=== PATIENT | male | born 1955 | race Caucasian/White ===

== ENCOUNTER → 2023-06-08 12:40 | Outpatient (REF) | payer MEDICARE, BC, SELFPAY ==
[2023-06-08 13:13] LABS: % Basophils 0.2 % (0-2); % Eosinophils 0.8 % (0-6); % Immature Granulocytes 0.6 % (0-0.5); % Lymphocytes 19.1 % (20.5-51.1); % Monocytes 8.6 % (1.7-9.3); % Neutrophils 70.7 % (42.2-75.2); Absolute Eosinophils 0.1 10^3/uL (0-0.7); Absolute Immature Granulocytes 0.1 10^3/uL (0-0.05); Absolute Lymphocytes 1.6 10^3/uL (1.2-3.4); Absolute Monocytes 0.7 10^3/uL (0.1-0.6); Absolute Neutrophils 5.8 10^3/uL (1.4-6.5); Hematocrit 46.4 % (39.0-52.0); Hemoglobin 16.2 g/dL (13.0-18.0); Mean Corp Hgb Conc. 34.9 g/dL (33.0-37.0); Mean Corpuscular Hgb 36.7 pg (27.0-31.0); Nucleated Red Blood Cells % 0 % (-); Red Blood Cell Count 4.42 10^6/uL (4.70-6.10); Red Cell Dist. Width 16.6 % (11.5-14.5); White Blood Cell Count 8.2 10^3/uL (4.8-10.8)
[2023-06-08 13:35] LABS: Blood Urea Nitrogen 32 mg/dl (9-20); Calcium 8.7 mg/dl (8.4-10.2); Carbon Dioxide 25 mmol/L (22-30); Chloride 106 mmol/L (98-107); Glucose 82 mg/dl (70-99); Sodium 136 mmol/L (135-145); eGFR > 60.00
[2023-06-08 13:47] LABS: NT-proBNP 752 pg/ml
== END ==
LOC: RAD 12:40
PROVIDERS: ATTENDING PHYSICIAN Internal Medicine Cardiovascular Disease; FAMILY PHYSICIAN Internal Medicine
DX: R60.0 Localized edema (principal); I87.2 Venous insufficiency (chronic) (peripheral); L03.116 Cellulitis of left lower limb; I10 Essential (primary) hypertension; E78.5 Hyperlipidemia, unspecified; D64.9 Anemia, unspecified; Z12.5 Encounter for screening for malignant neoplasm of prostate; Z00.01 Encounter for general adult medical examination with abnormal findings; I47.20 Ventricular tachycardia, unspecified; R06.09 Other forms of dyspnea
CPT/HCPCS: 36415; 80048; 83880; 85025; 93971

== ENCOUNTER 2023-06-15 14:34 | Inpatient (IN) | payer MEDICARE, BC, SELFPAY ==
[2023-06-15 15:17] VITALS: BP 103/79
--- NOTE | 2023-06-15 15:35 | CM ---
Chart reviewed. Patient is independent of ADLS, lives with his in a [address], 2 [facility], ambulates with a SPC. Patient currently with no discharge needs. CM to follow
[2023-06-15 15:46] VITALS: BMI 27.0
--- NOTE | 2023-06-15 16:21 | W.CARD.TIKOS ---
Initiate Tikosyn
-
I verify that the patient has not taken any verapamil (Isoptin/Calan), ketoconazole (Nizoral), cimetidine (Tagamet), trimethoprim (Trimpex), trimethoprim/sulfamethoxazole (Bactrim), megesterol (Megace), prochlorperazine (Compazine),
hydrochlorothiazide (HCTZ), dolutegravir (Tivicay) or any Class I or Class III anti-arrhythmic within the last three days
AND
I verify that the patient has not taken amiodarone within the last THREE months, or that the patient's amiodarone plasma concentration is <0.3 mcg/mL.
I have assessed the baseline QTc interval (using QT for heart rate less than 60 bpm) and deemed the patient is appropriate for Dofetilide therapy. I understand that Tikosyn is contraindicated if the QTc is >440msec (500msec in patients with
ventricular conduction abnormalities).
Baseline QTc (in msec): 414
Ordering Physician: Glenn Sen
--- NOTE | 2023-06-15 17:00 | W.PN.CD ---
Addendum entered and electronically signed by Jayme Lawler MD 06/15/23 17:52:
67 yo male with PMH of persistent A fib, VT s/p ICD admitted for dofetilide load. He offers no complaints today. Exam with irregular rhythm, no murmurs, trace LE edema. Cr 0.6 (on 06/08).
Start dofetilide 500 mcg bid. Monitor tele and EKG.
If remains in A fib, will do inpatient DCCV later in the week.
Original Note:
Today's Communication / Plan
-
Dofetilide loading per protocol
Impression / Plan
-
*SEE SCANNED H&P - THIS IS A SUMMARY*
Background: 67M with hypertension, paroxysmal (now persistent) atrial fibrillation/flutter, sustained slow ventricular tachycardia, restrictive lung disease, and vascular disease who presents for dofetilide loading.
Impression/Plan:
Persistent atrial fibrillation
-Rate controlled
-Oral Anticoagulation: Apixaban 5mg BID, he denies missed doses and abnormal bleeding
-[id number]: Score at least 4 (HF, HTN, Vascular disease, age 65-74)
-EKG shows acceptable QTc
-Dofetilide loading per protocol, this requires intensive monitoring
-DCCV if necessary 06/17/23
HFpEF, chronic
-Started on furosemide 40mg with improvement in his LE edema
-He is refusing cardiac diet during hospitalization
-Monitor daily weight
Ventricular tachycardia, continue beta ismael
ICD, stable in outpatient device clinic
Hypertension
CAD, luminal disease by cardiac catheterization
Subjective:
Feels well. No complaints.
Physical Exam
Vital Signs/Labs
Vital Signs
Temp Pulse Resp BP Pulse Ox
97.9 F 68 18 103/79 96
06/15/23 15:17 06/15/23 15:17 06/15/23 15:17 06/15/23 15:17 06/15/23 15:17
06/14/23 06/15/23 06/16/23
06:59 06:59 06:59
Actual Weight 95.4 kg
Physical Exam
Constitutional: No acute distress and Comfortable
EENT: Anicteric and Moist mucous membranes
Cardiovascular: Rhythm/rate is irregular and S1S2 is normal
Respiratory: Respiratory effort normal and Lungs clear to auscul.
GI: Soft, Distention absent, Flat, Non tender and Normal bowel sounds
Neuro/Psych: AO x 3
Other: Skin (warm and dry)
Data Reviewed
-
Date of Service: June 15, 2023
Medical Decision Making: Reviewed Test Results and Tests Ordered
Labs: Labs Reviewed by me
Old Records: Reviewed
[2023-06-15 17:22] VITALS: BMI 27.0
--- NOTE | 2023-06-15 17:31 | PTCARENOTE ---
1520 Received patient for direct admit for Tikosyn. Oriented to room and call hernandez. Nursing admission, EKG completed, IV placed. Dr. Lawler in to see patient. Due for 1st dose of Tikosyn at 8pm.
[2023-06-15] MEDS: CRESTOR 5 MG PO (18:26)
[2023-06-15] MEDS: ZESTRIL 5 MG PO (18:26)
[2023-06-15 19:51] VITALS: BP 99/79
[2023-06-15] MEDS: ELIQUIS 5 MG PO (19:53)
[2023-06-15] MEDS: TIKOSYN 500 MCG PO (19:53)
[2023-06-15] MEDS: VIBRAMYCIN 100 MG PO (19:54)
--- NOTE | 2023-06-15 19:58 | PTCARENOTE ---
Assumed care of patient at 1900, patient AAO, denies chest pain/SOB. VPaced on monitor, VSS, SPO2 98% on RA. Full assessment completed as documented, plan of care discussed with patient verbalizing understanding.
[2023-06-15 22:50] VITALS: BP 119/84
--- NOTE | 2023-06-15 23:25 | PTCARENOTE ---
Patient resting comfortably, Remains VPaced on monitor, VSS, no acute changes in assessment. EKG s/p 1st dose Tikosyn 558, de ionizer operator progressive assembler and fitter notified. Instructed to hold AM dose until cardiology sees patient in morning.
[2023-06-16 04:36] VITALS: BP 116/88
[2023-06-16 06:00] VITALS: BMI 27.0
[2023-06-16] MEDS: VIBRAMYCIN 100 MG PO ×2 (06:35→19:50)
--- NOTE | 2023-06-16 08:15 | W.PN.CD ---
Today's Communication / Plan
-
ICD to be checked a bit of undersensing of the flutter
Only 1 dose dofetilide yesterday so will wait until 06/18/2023 to cardiovert if needed
High risk, monitor on tele
Impression / Plan
-
Background: 67M with hypertension, paroxysmal (now persistent) atrial fibrillation/flutter, sustained slow ventricular tachycardia, restrictive lung disease, and vascular disease who presents for dofetilide loading.
Impression:
Persistent atrial fibrillation
- AFib has organized to a flutter (likely atypical but would need EPS to know for sure). GOOD SIGN
-Rate controlled
-Oral Anticoagulation: Apixaban 5mg BID, he denies missed doses and abnormal bleeding
-[id number]: Score at least 4 (HF, HTN, Vascular disease, age 65-74)
-EKG shows acceptable QTc. Now V paced with QTc under 550
-Dofetilide loading per protocol, this requires intensive monitoring
-DCCV if necessary 06/17/23
HFpEF, chronic
-Started on furosemide 40mg with improvement in his LE edema
-He is refusing cardiac diet during hospitalization
-Monitor daily weight
Ventricular tachycardia, continue beta ismael
ICD, stable in outpatient device clinic
Hypertension
CAD, luminal disease by cardiac catheterization
Lung disease. Has f/u with pulm planned
Subjective:
Feels well. No complaints.
Physical Exam
Vital Signs/Labs
Vital Signs
Temp Pulse Resp BP Pulse Ox
98.1 F 60 16 116/88 97
06/16/23 04:41 06/16/23 04:36 06/16/23 04:41 06/16/23 04:36 06/16/23 04:41
06/15/23 06/16/23 06/17/23
06:59 06:59 06:59
Actual Weight 95.4 kg
Physical Exam
Constitutional: No acute distress
EENT: Anicteric
Cardiovascular: Rhythm & rate is regular and Pedal edema present (trace to mild)
Respiratory: Respiratory effort normal, Lungs clear to auscul. (but with prolonged expirtatory phase (nonsmoker)) and Crackles Absent
GI: Soft, Distention absent and Flat
Neuro/Psych: AO x 3
Data Reviewed
-
Date of Service: June 16, 2023
[2023-06-16 08:23] VITALS: BP 110/78
[2023-06-16] MEDS: TIKOSYN 500 MCG PO ×2 (08:55→19:50)
[2023-06-16] MEDS: ELIQUIS 5 MG PO ×2 (08:55→19:50)
[2023-06-16] MEDS: LASIX 40 MG PO (08:55)
[2023-06-16] MEDS: TOPROL XL 100 MG PO (08:55)
--- NOTE | 2023-06-16 09:58 | W.PN.UPDATE ---
Update Note
Progress Note Update
-
-
Device interrogation showed perfect sensing of flutter (300 ms) of 4 mV
Aflutter terminated with BURST Atrial pacing at 240 ms via his device
QTc fine on new 12 lead ekg in atrial paced rhythm with reno-sparks QRS (narrow)
-
-
--- NOTE | 2023-06-16 11:10 | CM ---
Chart reviewed. Patient is independent of ADLS, lives with his in a [address], 2 [facility], ambulates with a SPC. I called patient's [facility] and they do have Dofetilide 500mcq in stock. I will confirm the day of discharge. The cost is $50.20 for
a 30 day supply. Patient is agreeable to the cost. CM to follow
[2023-06-16 13:18] VITALS: BP 119/76
[2023-06-16 15:08] VITALS: BP 110/84
[2023-06-16] MEDS: ZESTRIL 5 MG PO (18:18)
[2023-06-16] MEDS: CRESTOR 5 MG PO (18:18)
--- NOTE | 2023-06-16 19:25 | PTCARENOTE ---
Ambulating in room and in hallway independently. Denies complaints.
[2023-06-16 19:39] VITALS: BP 109/74
[2023-06-16 22:52] VITALS: BP 116/72
--- NOTE | 2023-06-16 23:13 | PTCARENOTE ---
Pt received start of shift HR SR w/ AV pacing and BBB 60s-70s. BP stable. Pt in bed watching TV, states no questions about purpose of Tikosyn. 3rd dose of Tikosyn administered, QTc 516. Pt informed to notify RN if any CP, SOB, or
lightheadedness/dizziness. call hernandez within reach.
[2023-06-17 02:55] VITALS: BP 116/92
[2023-06-17 07:51] VITALS: BP 120/89
[2023-06-17] MEDS: ELIQUIS 5 MG PO ×2 (07:53→20:01)
[2023-06-17] MEDS: LASIX 40 MG PO (07:53)
[2023-06-17] MEDS: VIBRAMYCIN 100 MG PO ×2 (07:53→20:00)
[2023-06-17] MEDS: TOPROL XL 100 MG PO (07:55)
--- NOTE | 2023-06-17 09:37 | W.PN.CD ---
Today's Communication / Plan
-
- QTc - long
- Reduce Tikosyn to 250 mcg
- EKG tonight and in AM.
- Possible discharge in AM after Tikosyn dose.
Impression / Plan
-
Background: 67M with hypertension, paroxysmal (now persistent) atrial fibrillation/flutter, sustained slow ventricular tachycardia, restrictive lung disease, and vascular disease who presents for dofetilide loading.
Impression:
Persistent atrial fibrillation
-AFib has organized to a flutter s/p atrial burst pacing and now in sinus.
-Rate controlled
-Oral Anticoagulation: Apixaban 5mg BID, he denies missed doses and abnormal bleeding
-[id number]: Score at least 4 (HF, HTN, Vascular disease, age 65-74)
-EKG shows lengthening QTc with PVCs on Tikosyn 500 mcg. Normal Cr and CrCL.
-Will reduce Tikosyn dose to 250 mcg q12h
-Dofetilide loading per protocol, this requires intensive monitoring
-now in sinus
HFpEF, chronic
-Started on furosemide 40mg with improvement in his LE edema
-He is refusing cardiac diet during hospitalization
-Monitor daily weight
Ventricular tachycardia, continue beta ismael
ICD, stable in outpatient device clinic
Hypertension
CAD, luminal disease by cardiac catheterization
Lung disease. Has f/u with pulm planned
Subjective:
Feels well. No complaints.
Physical Exam
Vital Signs/Labs
Vital Signs
Temp Pulse Resp BP Pulse Ox
97.9 F 93 24 120/89 95
06/17/23 07:48 06/17/23 07:51 06/17/23 07:48 06/17/23 07:51 06/17/23 07:48
06/16/23 06/17/23 06/18/23
06:59 06:59 06:59
Actual Weight 95.4 kg
Physical Exam
Constitutional: No acute distress and Comfortable
EENT: Anicteric and Moist mucous membranes
Cardiovascular: Rhythm & rate is regular, Pedal edema is absent, JVD pressure is normal and Systolic murmur absent
Respiratory: Respiratory effort normal, Lungs clear to auscul., Wheeze Absent and Crackles Absent
GI: Soft, Distention absent, Non tender and Normal bowel sounds
Neuro/Psych: Alert, Oriented, AO x 3 and Motor deficits absent
Other: Cath Site and Cardiac Device Site
Data Reviewed
-
Date of Service: June 17, 2023
Medical Decision Making: Reviewed Test Results, Tests Ordered, Test Interpretation and Review of Case with other Provider
EKG: Tracing Personally Visualized and interpreted
Echo: Report Reviewed by me
X-Ray/CT/US/MRI/NUC/PET: Image Personally Visualized and interpreted
Labs: Labs Reviewed by me
Old Records: Reviewed
--- NOTE | 2023-06-17 10:27 | CM ---
Chart reviewed. Patient is independent of ADLS, lives with his [place] [address], 2 [facility], ambulates with a SPC. Dofetilide decreased to 250mcq. CM to call and confirm availability on day of discharge. CM to follow
--- NOTE | 2023-06-17 10:28 | PTCARENOTE ---
Dr. Loco notified of last night's QTC result. Tikosyn dose reduced to 250mg.
[2023-06-17] MEDS: TIKOSYN 250 MCG PO ×2 (11:26→22:32)
[2023-06-17] MEDS: TIKOSYN PO (11:28)
[2023-06-17 11:46] VITALS: BP 111/69
[2023-06-17 15:26] VITALS: BP 98/70
[2023-06-17] MEDS: ZESTRIL 10 MG PO (17:34)
[2023-06-17] MEDS: CRESTOR 5 MG PO (17:34)
[2023-06-17 19:58] VITALS: BP 115/67
[2023-06-17] MEDS: FLUSH (NSS) 1 FLUSH IV (20:01)
[2023-06-17 22:31] VITALS: BP 107/71
--- NOTE | 2023-06-18 01:13 | PTCARENOTE ---
Received patient at change of shift this PM. AAOx3. VSS. He is A-Paced on the monitor, but occasionally AV-Paced or NSR. HR in the 60s-90s. INT patent. He denies chest pain or discomfort. Plan of care discussed. He is receptive to teaching and
motivated. We discussed his medications and he has no further questions about them at this time. He denies pain and appears comfortable in bed. Will continue to monitor.
[2023-06-18 03:51] VITALS: BP 113/72
[2023-06-18 05:13] VITALS: BMI 27.2
[2023-06-18 07:28] VITALS: BP 126/86
[2023-06-18] MEDS: ELIQUIS 5 MG PO (08:32)
[2023-06-18] MEDS: TOPROL XL 100 MG PO (08:32)
[2023-06-18] MEDS: VIBRAMYCIN 100 MG PO (08:32)
[2023-06-18] MEDS: LASIX 40 MG PO (08:32)
--- NOTE | 2023-06-18 10:23 | W.PN.CD ---
Today's Communication / Plan
-
- Hope AFib will be paroxysmal and low burden on Dofetilide 250 BID and if not may need to accept afib as permanent or refer for ablation�
- Home today
Impression / Plan
-
Background: 67M with hypertension, paroxysmal (now persistent) atrial fibrillation/flutter, sustained slow ventricular tachycardia, restrictive lung disease, and vascular disease who presents for dofetilide loading.
Impression:
Persistent atrial fibrillation
-AFib has organized after 1-2 doses of dofetilide to a flutter => s/p atrial burst pacing to sinus => dofetilide lowered to 250 BID and just went into AFib
- Hope AFib will be paroxysmal and low burden on Dofetilide 250 BID and if not may need to accept afib as permanent or refer for ablation
-Rate controlled
-Oral Anticoagulation: Apixaban 5mg BID, he denies missed doses and abnormal bleeding
-[id number]: Score at least 4 (HF, HTN, Vascular disease, age 65-74)
-EKG shows lengthening QTc with PVCs on Tikosyn 500 mcg. Normal Cr and CrCL.
-Will reduce Tikosyn dose to 250 mcg q12h
-Dofetilide loading per protocol, this requires intensive monitoring
-now in sinus
HFpEF, chronic
-Started on furosemide 40mg with improvement in his LE edema
-He is refusing cardiac diet during hospitalization
-Monitor daily weight
Ventricular tachycardia, continue beta ismael
ICD, stable in outpatient device clinic
Hypertension
CAD, luminal disease by cardiac catheterization
Lung disease. Has f/u with pulm planned
Subjective:
Feels well. No complaints.
Physical Exam
Vital Signs/Labs
Vital Signs
Temp Pulse Resp BP Pulse Ox
98.4 F 69 18 126/80 96
06/18/23 07:27 06/18/23 09:00 06/18/23 07:27 06/18/23 08:32 06/18/23 07:27
06/17/23 06/18/23 06/19/23
06:59 06:59 06:59
Actual Weight 96.2 kg
Physical Exam
Constitutional: No acute distress
EENT: Anicteric
Cardiovascular: Rhythm/rate is irregular
Respiratory: Respiratory effort normal and Lungs clear to auscul.
GI: Soft and Distention absent
Neuro/Psych: AO x 3
Data Reviewed
-
Date of Service: June 18, 2023
[2023-06-18] MEDS: TIKOSYN 250 MCG PO (10:38)
--- NOTE | 2023-06-18 10:57 | W.DS.TRANS ---
DC Summary - Staff Engineer
-
Discharge Instructions:
Sleep Apnea Risk Intermediate
Discharge Diagnosis/Procedures persistent Afib, Tikosyn loading
Diet 2 Gram Sodium
Activity As tolerated
Driving Restrictions As prior to admission
Bathing Restrictions None
Instructions:
Stand-Alone Forms:
Changes to Home Medications: Yes
Discharge Medications:
DC Medications w/original date entered in [facility]
apixaban 5 mg tablet (Eliquis) 5 mg PO BID #60 tabs 06/18/23
dofetilide 250 mcg capsule 250 mcg PO Q12H #60 caps 06/18/23
furosemide 40 mg tablet 40 mg PO DAILY hfpef #30 tabs 06/18/23
lisinopril 5 mg tablet 10 mg PO QPM htn #30 tabs 06/18/23
metoprolol succinate 100 mg tablet,extended release 24 hr 100 mg PO DAILY rate control of Afib #30 tabs 06/18/23
rosuvastatin 5 mg tablet 5 mg PO QPM High cholesterol #30 tabs 06/18/23
Home Medication Changes
Lasix increased to 40mg daily.
Tikosyn is new.
Lisinopril increased to 10mg daily.
Pending Results: No
--- NOTE | 2023-06-18 12:39 | PTCARENOTE ---
Pt discharged with 3 day supply of tikosyn. Pt awaiting transport. Will monitor.
== END 2023-06-18 12:55 | disposition home or self-care (01) | DRG 309 ==
LOC: IVU 14:34
PROVIDERS: ADMITTING PHYSICIAN Internal Medicine Cardiovascular Disease
DX: I48.19 Other persistent atrial fibrillation (principal); I50.32 Chronic diastolic (congestive) heart failure; Z79.01 Long term (current) use of anticoagulants; I47.20 Ventricular tachycardia, unspecified; I11.0 Hypertensive heart disease with heart failure
CPT/HCPCS: 93005

== ENCOUNTER 2023-06-21 18:32 | Inpatient (IN) | payer MEDICARE, BC, SELFPAY ==
[2023-06-21] VITALS (15 sets, daily range): BP systolic 81–111; BP diastolic 51–76; BMI 27.0; BMI 25.2
--- NOTE | 2023-06-21 11:26 | ED.GENMED ---
History of Present Illness
General
Chief Complaint: Musculo-Skeletal Complaint
Source: patient
Time Seen by Provider: 06/21/23 11:14
Travel History
Have you had any contact with someone who has COVID-19?: No
Do you have any symptoms of coronavirus? Fever > 100 degrees, chills, cough, shortness of breath, sore throat, loss of taste or smell, muscle aches, or headache?: No
History of Present Illness
History of Present Illness:
67 year old male presents with worsening swelling and redness and pain to left leg. He was thought to have cellulitis about 2 weeks ago and was started on Doxy psych she completed a 10-day course. He is not a diabetic. History of left total knee
arthroplasty and left ankle ORIF. IN 2020, he was found to have pseudomonas in the left ankle and had superintendent [employer] IV antibiotics for this. No chest pain or SOB. Not a diabetic. On elqius. US left leg done 2 weeks ago negative for DVT. No other
complaints at this time.
Past History
Past History
ED Past Medical History: Arrthythmia (afib), HTN and Hypercholesterolemia
ED Past Surgical History: Orthopedic (right hip replacement)
Social History
Tobacco: Non-smoker
Alcohol: Occasional
Drug: None
Personal:
Living: with family
Employment: Employed
Family History
Family History: Other (n/c)
Phy Exam
Physical Exam
Physical Exam:
General: Well-appearing male no acute respiratory distress
HEENT: Normocephalic atraumatic neck is supple heart: Regular rate and rhythm no murmurs
Lungs: CTA bilaterally
Abd: soft, nontender
Ext: erythema to left leg spreading from left ankle to mid thigh. This is tender to palpation.
MSK: Left knee, no significant effusion. Full extension and flexion beyond 90 degrees.
Skin:no open wounds.
Course
Orders/Labs/Results
Orders:
Orders
06/21/23 11:39
Acetaminophen [Tylenol] 650 mg PO NOW STA
06/21/23 11:45
Basic Metabolic Panel Urgent
Complete Blood Count/With Diff Urgent
Lactic Acid Q4H
Comment: CANCEL 2nd LACTIC ACID IF 1st LACTIC ACID IS LESS THAN 2
Blood Culture Q30M
MARGARET Source: Blood/Venous
Specimen Description:
06/21/23 14:14
Potassium Routine
Blood Culture Q30M
MARGARET Source: Blood/Venous
Specimen Description:
06/21/23 14:54
Piperacillin/Tazo 3.375 Gram [Zosyn] 3.375 gram in 50 ml IV NOW
Vancomycin 1 Gram/200 ml [Vancocin] 1 gram in 200 ml IV NOW
06/21/23 15:30
Lactic Acid Q4H
Comment: CANCEL 2nd LACTIC ACID IF 1st LACTIC ACID IS LESS THAN 2
Abnormal Lab Results
06/21/23
11:45
WBC 16.7 H 10^3/uL
(4.8-10.8)
RBC 4.08 L 10^6/uL
(4.70-6.10)
MCV 106.4 H fL
(80.0-94.0)
MCH 37.7 H pg
(27.0-31.0)
RDW 16.3 H %
(11.5-14.5)
MPV 10.5 H fL
(7.4-10.4)
Abs Immat Gran (auto) 0.1 H 10^3/uL
(0-0.05)
Absolute Neuts (auto) 14.1 H 10^3/uL
(1.4-6.5)
Absolute Lymphs (auto) 0.9 L 10^3/uL
(1.2-3.4)
Absolute Monos (auto) 1.5 H 10^3/uL
(0.1-0.6)
Immature Gran % 0.7 H %
(0-0.5)
Neutrophils % 84.4 H %
(42.2-75.2)
Lymphocytes % 5.6 L %
(20.5-51.1)
Sodium 134 L mmol/L
(135-145)
Chloride 111 H mmol/L
(98-107)
Carbon Dioxide 21 L mmol/L
(22-30)
BUN 33 H mg/dl
(9-20)
Glucose 117 H mg/dl
(70-99)
Lactic Acid 2.4 H mmol/L
(0.7-2.0)
Calcium 8.3 L mg/dl
(8.4-10.2)
06/21/23 11:45
06/21/23 14:14
Vital Signs
Initial and Last Documented VS:
Initial Vital Signs
Temp Pulse Resp BP Pulse Ox
100.8 F H 88 18 91/65 96
06/21/23 11:04 06/21/23 11:04 06/21/23 11:04 06/21/23 11:04 06/21/23 11:04
Last Documented Vital Signs
Temp Pulse Resp BP Pulse Ox
99.6 F 88 18 90/52 95
06/21/23 13:02 06/21/23 11:04 06/21/23 11:04 06/21/23 14:00 06/21/23 14:00
MDM/Problems Addressed
Differential Diagnosis Includes:
Left leg erythema. He is anticoagulated. Do not suspect DVT. Left knee with good range of motion and no significant effusion. Do not suspect septic arthritis. Suspect cellulitis. Labs and cultures pending. Temperature is 100.8 triage.
*Critical Care Note
Total Time (30-74mins, 75-104mins- exclusive of procedures): Not Applicable
Update Note
Update Note:
White blood cell count 16.7. Patient does have a fever here. Will start vancomycin and Zosyn. He has failed outpatient treatment for cellulitis. Admit to hospital
ED Attending Note
-
Portions of this chart may have been created with voice recognition software.� Occasional wrong word or��sound alike� substitutions may have occurred due to the inherent limitations of voice recognition software.
Discharge Plan
Departure
Patient Disposition: Admit
Date of Disposition: 06/21/23
Time of Disposition: 14:58
Admit to: Telemetry
Presentation/result/management discussed w/ accepting MD/DO: Hospitalist
Discharge Problem:
Cellulitis
Prescriptions:
No Action
furosemide 40 mg Tablet
40 mg PO DAILY Qty: 30 1RF
metoprolol succinate 100 mg Tablet Extended Release 24 Hr
100 mg PO DAILY Qty: 30 0RF
dofetilide 250 mcg Capsule
250 mcg PO Q12H Qty: 60 3RF
lisinopril 5 mg Tablet
10 mg PO QPM Qty: 30 0RF
Eliquis 5 mg Tablet
5 mg PO BID Qty: 60 0RF
rosuvastatin 5 mg Tablet
5 mg PO QPM Qty: 30 0RF
ascorbic acid (vitamin C) [Vitamin C] 500 mg Tablet
500 mg PO DAILY
Referrals:
Napoleon North MD [Family Provider] -
Interventions
Interventions:
*Risk Screen - Suicide Last Done: 06/21/23 11:04
*General Assessment Last Done: 06/21/23 11:04
*Neglect/Abuse Screening Last Done: 06/21/23 11:04
ED- Fall Risk Assessment Last Done: 06/21/23 11:27
*ED COVID-19 Vaccine History Last Done: 06/21/23 11:04
ED-Musculoskeletal Assessment Last Done: 06/21/23 11:27
[2023-06-21] MEDS: TYLENOL 650 MG PO (11:52)
[2023-06-21 11:59] LABS: % Basophils 0.2 % (0-2); % Eosinophils 0.1 % (0-6); % Immature Granulocytes 0.7 % (0-0.5); % Lymphocytes 5.6 % (20.5-51.1); % Neutrophils 84.4 % (42.2-75.2); Absolute Immature Granulocytes 0.1 10^3/uL (0-0.05); Absolute Lymphocytes 0.9 10^3/uL (1.2-3.4); Absolute Monocytes 1.5 10^3/uL (0.1-0.6); Absolute Neutrophils 14.1 10^3/uL (1.4-6.5); Hematocrit 43.4 % (39.0-52.0); Hemoglobin 15.4 g/dL (13.0-18.0); Mean Corp Hgb Conc. 35.5 g/dL (33.0-37.0); Mean Corpuscular Hgb 37.7 pg (27.0-31.0); Mean Corpuscular Volume 106.4 fL (80.0-94.0); Mean Platelet Volume 10.5 fL (7.4-10.4); Nucleated Red Blood Cells % 0 % (-); Platelet Count 137 10^3/uL (130-400); Red Blood Cell Count 4.08 10^6/uL (4.70-6.10); Red Cell Dist. Width 16.3 % (11.5-14.5); White Blood Cell Count 16.7 10^3/uL (4.8-10.8)
[2023-06-21 12:30] LABS: Lactic Acid 2.4 mmol/L (0.7-2.0)
[2023-06-21 12:33] LABS: Blood Urea Nitrogen 33 mg/dl (9-20); Calcium 8.3 mg/dl (8.4-10.2); Carbon Dioxide 21 mmol/L (22-30); Chloride 111 mmol/L (98-107); Estimated Creatinine Clearance 119 ml/min; Glucose 117 mg/dl (70-99); Sodium 134 mmol/L (135-145); eGFR > 60.00
[2023-06-21 14:44] LABS: Potassium 4.1 mmol/L (3.5-5.1)
[2023-06-21] MEDS: ZOSYN 50 IV ×2 (15:15→22:26)
[2023-06-21] MEDS: VANCOCIN 540 MG IV (15:55)
[2023-06-21 16:50] LABS: Lactic Acid 2.3 mmol/L (0.7-2.0)
--- NOTE | 2023-06-21 17:16 | HPS.HSE ---
Addendum entered and electronically signed by Deven Friedman MD 06/21/23 17:34:
67-year-old male with a past medical history of atrial fibrillation on Eliquis, left ankle surgery complicated by Pseudomonas infection, hypertension, hyperlipidemia, and heart failure presents with fever and worsening erythema/swelling despite a
full course of doxycycline for cellulitis.
Patient has a leukocytosis, with a fever. He is hypotensive.
Place in the IMU, check lower extremity Dopplers, give IV fluids, hold home blood pressure medications, midodrine as needed, IV Zosyn to cover for Pseudomonas.
If blood cultures are negative, can change to Ancef.
I have personally seen and examined the patient, and agree with the plan of care as documented by Lorraine Strange PA-C.
Advance care planning discussed, patient is a full code.
All other issues as outlined by the advanced care practitioner.
Total time spent to see the patient on the floor, examine the patient, review data and lab results, discuss treatment plan with patient, nursing staff around 75 minutes.
Original Note:
Family Physician
-
Family Physician: [facility]
Chief Complaint
-
Left Lower Ext Edema and Pain
History of Present Illness
Pt is a 67yo M w/ a PMH of HTN, HLD, HFpEF, persistent AFib, and Left Ankle ORIF w/ infection caused by Pseudomonas who is presenting to the ED c/o redness, swelling and pain in the right leg x 2 days. He states he was diagnosed with cellulitis on
Jun 08 and prescribed a 10 day course of doxycycline. He states that a Doppler ultrasound was performed at that time and was negative for blood clot. He states he presented to ED on 06/18/23 for a Tikosin load for AFib. He reports having taken
the first 8 days of the doxycycline, was given 2 days worth while here and then finished his additional 2 days that he had left at home. He states the infection looked improved but the swelling started the day after he returned home from the
hospital this most recent time. He reports increased pain in the left lower extremity and increased redness of the upper thigh. He admits to a fever and presented with a 100.8F temperature upon arrival to the ED.
Medical History
Past Medical History
Past Medical History: Reports Other
Additional Past Medical History:
Paroxysmal Atrial Fibrillation
Essential Hypertension
Hyperlipidemia
Iliac Artery Aneurysm s/p repair/stent
Past Surgical History: Reports Other
Additional Past Surgical History:
Right Distal Radius Fracture Repair
Right Rotator Cuff
Right Hip Replacement
Left Knee Replacement
Left Ankle ORIF
Lumbar MIKIE
Right Lithotripsy
Social History
Tobacco: Non-smoker
Family History
Family History: Not pertinent
Allergies / Home Medications
Allergies reflects when Allergies were last updated in [facility].
Home Medications with original date entered in [facility]
Allergy/Medication List:
Allergies
Allergy/AdvReac Type Severity Reaction Status Date / Time
amoxicillin [From Augmentin] Allergy Rash Verified 06/21/23 11:05
clavulanic acid Allergy Rash/tolerates Verified 06/21/23 11:05
[From Augmentin] cephalosporin
Home Medications
apixaban 5 mg tablet (Eliquis) 5 mg PO BID #60 tabs 06/18/23
dofetilide 250 mcg capsule 250 mcg PO Q12H #60 caps 06/18/23
furosemide 40 mg tablet 40 mg PO DAILY hfpef #30 tabs 06/18/23
lisinopril 5 mg tablet 10 mg PO QPM htn #30 tabs 06/18/23
metoprolol succinate 100 mg tablet,extended release 24 hr 100 mg PO DAILY rate control of Afib #30 tabs 06/18/23
rosuvastatin 5 mg tablet 5 mg PO QPM High cholesterol #30 tabs 06/18/23
ascorbic acid (vitamin C) 500 mg tablet (Vitamin C) 500 mg PO DAILY 06/21/23
Review of Systems
-
A 12 point ROS was completed and negative except as noted: Yes
Constitutional: Reports Fever; Denies Chills
Respiratory: Reports Cough (Chronic and Unchanged)
Cardiac: Denies Chest Pain or Palpitations
Skin: Reports See HPI
Physical Exam
Vital Signs
Vital Signs
Temp Pulse Resp BP Pulse Ox
99.6 F 88 18 84/61 95
06/21/23 13:02 06/21/23 11:04 06/21/23 11:04 06/21/23 16:00 06/21/23 16:15
Physical Exam
General: Comfortable and Conversant
HEENT: Anicteric and Moist mucous membranes
Respiratory: Clear and Non Labored Respirations
Cardiac: S1/S2 and Regular Rhythm
GI: Soft and Non Tender
Rectal: Deferred by Provider
Musculoskeletal: No Clubbing, No Cyanosis, Edema, Left Lower Extremity (+2) and Edema, Right Lower Extremity (+1)
Skin: Warm, Dry and Other (Chronic skin changes bilateral lower extremities; Left medial and lateral thigh with increased erythema and increased warmth to touch)
Neuro: Awake, Alert, Oriented and Nonfocal/grossly intact
Laboratory Results
-
06/21/23 11:45
06/21/23 14:14
Laboratory Results
Lactic Acid 2.3 mmol/L (0.7-2.0) H 06/21/23 16:30
Total Bilirubin Cancelled 06/21/23 11:45
AST Cancelled 06/21/23 11:45
ALT Cancelled 06/21/23 11:45
Alkaline Phosphatase Cancelled 06/21/23 11:45
Data Reviewed
-
Lab Data: Labs Reviewed by me
Old Records: Reviewed
Impression/Plan
-
Severe Sepsis secondary to Left Lower Ext Cellulitis
-Admit to IMU should patient require additional BP support after sepsis fluid bolus
-Add Midodrine prn
-Continue Zosyn
-Check peripheral vascular ultrasound
-Await blood culture
Chronic HFpEF
-Hold Lasix
-Monitor IS&Os and Daily Weight
Paroxysmal Atrial Fibrillation
-Continue Eliquis
-Continue Tikosyn for rhythm control
Essential Hypertension
-Hold Lisinopril and Metoprolol due to hypotension
Hyperlipidemia
-Continue rosuvastatin
Iliac Artery Aneurysm s/p repair/stent
DVT proph: Eliquis
Code Status: Full Code
[2023-06-21] MEDS: NSS 1000 IV ×2 (17:41→22:26)
[2023-06-21] MEDS: CRESTOR 5 MG PO (20:37)
[2023-06-21] MEDS: ELIQUIS 5 MG PO (20:37)
[2023-06-21] MEDS: TIKOSYN 250 MCG PO (20:37)
--- NOTE | 2023-06-21 20:49 | PTCARENOTE ---
Pt arrived to IMU via stretcher right at change of shift. Pt ambulated to bed with minimal assistance. Pt uses a cane from home but did request a RW while here in the hospital to reduce weight on his left leg. RW at bedside. AAOx3. 98% on RA.
AFib on the monitor with occasional v pacing. HR 70s. BP 111/75. Pt only c/o pain in left leg when touched. Redness and swelling from toes up to mid thigh on left leg. No open wounds. Pt resting in bed with call hernandez in reach.
[2023-06-21 21:02] LABS: Lactic Acid 2.3 mmol/L (0.7-2.0)
[2023-06-21] MEDS: NSS IV (22:46)
[2023-06-22] VITALS (22 sets, daily range): BP systolic 90–117; BP diastolic 67–98; BMI 26.3
[2023-06-22] MEDS: ZOSYN 50 IV ×4 (04:01→22:14)
[2023-06-22] MEDS: TYLENOL 650 MG PO ×2 (04:01→22:16)
[2023-06-22 04:37] LABS: Hematocrit 38.9 % (39.0-52.0); Hemoglobin 13.7 g/dL (13.0-18.0); Mean Corp Hgb Conc. 35.2 g/dL (33.0-37.0); Mean Corpuscular Hgb 37.3 pg (27.0-31.0); Mean Platelet Volume 10.8 fL (7.4-10.4); Platelet Count 133 10^3/uL (130-400); Red Blood Cell Count 3.67 10^6/uL (4.70-6.10); Red Cell Dist. Width 16.7 % (11.5-14.5); White Blood Cell Count 14.2 10^3/uL (4.8-10.8)
[2023-06-22 05:01] LABS: Blood Urea Nitrogen 33 mg/dl (9-20); Calcium 8.1 mg/dl (8.4-10.2); Carbon Dioxide 22 mmol/L (22-30); Chloride 110 mmol/L (98-107); Estimated Creatinine Clearance > 125 ml/min; Glucose 94 mg/dl (70-99); Potassium 4.2 mmol/L (3.5-5.1); Sodium 135 mmol/L (135-145); eGFR > 60.00
[2023-06-22] MEDS: ELIQUIS 5 MG PO ×2 (08:55→19:40)
[2023-06-22] MEDS: TIKOSYN 250 MCG PO ×2 (08:55→19:40)
--- NOTE | 2023-06-22 10:29 | W.PN.HOSP.TC ---
Today's Communication/Plan
-
see bold
Assessment / Plan
Assessment / Plan
HPI: 67-year-old male with a past medical history of atrial fibrillation on Eliquis, left ankle surgery complicated by Pseudomonas infection, hypertension, hyperlipidemia, and heart failure presents with fever and worsening erythema/swelling despite
a full course of doxycycline for cellulitis.
Severe Sepsis secondary to Left Lower Ext Cellulitis
-Patient has a history of left ankle Pseudomonas infection
-Repeat left lower extremity ultrasound negative for DVT
-Continue Zosyn, follow-up blood cultures, consult ID
Hypertension
-Hold Lasix, lisinopril
-Continue IV fluids, midodrine as needed for SBP less than 90
Paroxysmal Atrial Fibrillation
-Continue Eliquis, Tikosyn for rhythm control
-Resume metoprolol at decreased dose due to hypotension
Chronic HFpEF
-Hold Lasix
-Monitor IS&Os and Daily Weight
Essential Hypertension
-Hold Lisinopril and Metoprolol due to hypotension
Hyperlipidemia
-Continue rosuvastatin
Iliac Artery Aneurysm s/p repair/stent
DVT proph: Eliquis
Code Status: Full Code
Physical Exam
General: No acute distress
HEENT: Normocephalic, Atraumatic, EOMI, MMM
Respiratory: Clear to Auscultation bilaterally
Cardiac: Normal S1/S2, Regular Rate and Rhythm
GI: Soft, Nontender, Nondistended, Normal Bowel Sounds
Extremities: No Clubbing, Cyanosis
Left lower extremity with severe edema, tenderness, and erythema that is dark in on the shins, but bright red on his posterior thighs
Neuro: Nonfocal/Grossly Intact
Anticipated Discharge: > 48 hours
Subjective/Interval History
-
Date of Service: June 22, 2023
Patient continues to have severe left thigh pain. Fever resolved. Complains of constipation.
Objective Data
-
Labs:
Laboratory Results
06/22/23
04:16
WBC 14.2 H
Hgb 13.7
Hct 38.9 L
Plt Count 133
Sodium 135
Potassium 4.2
Chloride 110 H
Carbon Dioxide 22
BUN 33 H
Creatinine 0.6 L
Glucose 94
Calcium 8.1 L
Vital Signs:
Vital Signs
Temp Pulse Resp BP Pulse Ox
98.1 F 69 17 98/75 96
06/22/23 07:47 06/22/23 09:00 06/22/23 09:00 06/22/23 09:00 06/22/23 09:45
I&O
06/21/23 06/22/23 06/23/23
06:59 06:59 06:59
Intake Total 1430 / 1430
Output Total 750 / 750 200 / 200
Balance 680 / 680 -200 / -200
[2023-06-22] MEDS: TOPROL XL 25 MG PO (12:29)
--- NOTE | 2023-06-22 12:57 | CON.ID ---
Consultation
-
Date/Time Consultation Requested: 06/22/23 12:49
Date/Time Consultation Performed: 06/22/23 12:57
Requesting Provider: Dr Friedman
Performing Provider: Dr Vogel
Reason for Consultation: sepsis, cellulitis
Chief Complaint / Past History
Chief Complaint
cellulitis
History of Present Illness
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 04/04/21 IR aspiration
grew pansensitive pseudomonas treated with cefepime x6 weeks through 05/19/20. Hardwear was retained. He recalls later having a tagged WBC cell scan at [facility] without uptake in the L ankle. There was also a question of possible inflammatory
arthropathy (not confirmed at that time, treated empirically) and patient also received a 10 day steroid taper over the initial portion of this treatment course then switched to colchicine.
He is now presenting here for LEFT (ipsilateral) lower extremity cellulitis since Jun 08.
he was prescribed and took a 10 day course of doxycycline, he initially felt that the extremity was improving but after discharge noted increased swelling, pain redness and a fever to 100.8 at home and so he presented here.
Since arrival here tmax 100.8 orally, BP stable, wbc on arrival 16 now 14, hgb 13.7, plt 133, L shift is noted, cr 0.6, ca 8.1, venous us x2 no dvt, blood cultures x2, 04/04/21 body fluid from the L ankle joint - pseudomonas. Has received doses of
vancomycin and zosyn, currently on zosyn. ID is consulted for assistance with management.
Past History
Additional Past Medical History:
Paroxysmal Atrial Fibrillation
Essential Hypertension
Hyperlipidemia
Iliac Artery Aneurysm s/p repair/stent
Additional Past Surgical History:
Iliac Artery Aneurysm s/p repair/stent
Right Distal Radius Fracture Repair
Right Rotator Cuff
Right Hip Replacement
Left Knee Replacement
Left Ankle ORIF
Lumbar MIKIE
Right Lithotripsy
Allergy History:
amoxicillin [From Augmentin] Allergy (Verified 06/21/23 19:17)
Rash
clavulanic acid [From Augmentin] Allergy (Verified 06/21/23 19:17)
Rash
Medications Reviewed: Yes
Social History
Tobacco: Non-Smoker
Personal:
Living: With Family
Family History
Family History: Not Pertinent
Review of Systems
Review of Systems
General: Fever and Chills
All systems: All other systems were reviewed and were negative
Vital Signs
Temp Pulse Resp BP Pulse Ox
98.5 F 80 21 111/82 96
06/22/23 11:19 06/22/23 12:29 06/22/23 11:00 06/22/23 12:29 06/22/23 11:00
Physical Exam
Physical Exam
Constitutional: No Acute Distress
Cardiovascular: Regular Rate and S1/S2; Negative Murmur or Rub
Pulmonary: Clear and Symmetric; Negative Wheezes, Rales or Rhonchi
Gastrointestinal: Soft, Non Tender, Non Distended and Normal Bowel Sounds
Extremities: Other (left lower extremity red, swollen, hot tender with lymphangitic streaking)
Skin: Warm, Dry and Rash (erythema, warmth, swelling tenderness without discrete fluctuance of the LLE); Negative Jaundice
Lab / Diagnostic Study Results
06/22/23 04:16
06/22/23 04:16
Abs Immat Gran (auto) 0.1 10^3/uL (0-0.05) H 06/21/23 11:45
Absolute Neuts (auto) 14.1 10^3/uL (1.4-6.5) H 06/21/23 11:45
Absolute Lymphs (auto) 0.9 10^3/uL (1.2-3.4) L 06/21/23 11:45
Absolute Monos (auto) 1.5 10^3/uL (0.1-0.6) H 06/21/23 11:45
Absolute Basos (auto) 0.0 10^3/uL (0-0.2) 06/21/23 11:45
Immature Gran % 0.7 % (0-0.5) H 06/21/23 11:45
Neutrophils % 84.4 % (42.2-75.2) H 06/21/23 11:45
Lymphocytes % 5.6 % (20.5-51.1) L 06/21/23 11:45
Monocytes % 9.0 % (1.7-9.3) 06/21/23 11:45
Eosinophils % 0.1 % (0-6) 06/21/23 11:45
Basophils % 0.2 % (0-2) 06/21/23 11:45
Lactic Acid 1.0 mmol/L (0.7-2.0) 06/22/23 01:31
Microbiology Results
Micro:
06/21/23 11:45 Blood Culture - Preliminary
Blood/Venous No Growth in 24 hours- Final report to follow
06/21/23 14:14 Blood Culture - Pending
Blood/Venous
Assessment / Plan
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
- treated 2020 - 6 weeks of cefepime
- hardwear retained that that time
H/o allergy to augmentin
- 04/04/21 fluid from L ankle - pseudomonas - I fear we may be seeing a relapse of a chronic infection particularly as Pseudomonas is prone to forming biofilms with remote computer terminal operator infections on hardwear - workup as below
- blood cultures x2
- xray and MRI of the L ankle
- may need to reconsider removal of retained hardwear pending imaging - after imaging resulted then I will consult and discuss with orthopedics, or if infection only seems to be superficial then would treat as for nonpurulent cellulitis (strep)
- continue zosyn for now
- follow clinically
[2023-06-22] MEDS: NSS 1000 IV (15:23)
[2023-06-22] MEDS: COLACE PO ×2 (15:32→19:50)
[2023-06-22] MEDS: CRESTOR 5 MG PO (17:30)
--- NOTE | 2023-06-22 19:12 | PTCARENOTE ---
Patient sent to multiple test throughout the shift, requiring patient to get OOB with RW and walk to stretcher. Patient also walking into bathroom and out in the hallway with . Vitals all stable. Assessment, care and VS as charted.
--- NOTE | 2023-06-22 20:34 | PTCARENOTE ---
Received pt at change of shift. Redness/swelling/pain still present in left leg but does not appear to have worsened. Pt states it's only painful when touched or when moving the leg. IV site had difficulty flushing. Notified IV team who assessed
the site and inserted an additional IV line in left FA. Pt resting comfortably in bed with call hernandez in reach.
[2023-06-23] VITALS (13 sets, daily range): BP systolic 94–110; BP diastolic 62–89; BMI 27.8; BMI 27.7
[2023-06-23] MEDS: ZOSYN 50 IV ×2 (03:08→09:16)
[2023-06-23 06:18] LABS: Hematocrit 39.4 % (39.0-52.0); Hemoglobin 13.7 g/dL (13.0-18.0); Mean Corp Hgb Conc. 34.8 g/dL (33.0-37.0); Mean Corpuscular Hgb 36.3 pg (27.0-31.0); Mean Corpuscular Volume 104.5 fL (80.0-94.0); Mean Platelet Volume 10.7 fL (7.4-10.4); Platelet Count 150 10^3/uL (130-400); Red Blood Cell Count 3.77 10^6/uL (4.70-6.10); Red Cell Dist. Width 16.6 % (11.5-14.5); White Blood Cell Count 13.5 10^3/uL (4.8-10.8)
[2023-06-23] MEDS: NSS IV ×2 (06:39→06:40)
[2023-06-23 06:51] LABS: Blood Urea Nitrogen 27 mg/dl (9-20); Calcium 7.7 mg/dl (8.4-10.2); Carbon Dioxide 21 mmol/L (22-30); Chloride 114 mmol/L (98-107); Estimated Creatinine Clearance 119 ml/min; Glucose 80 mg/dl (70-99); Potassium 4.1 mmol/L (3.5-5.1); Sodium 135 mmol/L (135-145); Uric Acid 1.8 mg/dl (3.5-8.5); eGFR > 60.00
--- NOTE | 2023-06-23 08:24 | PN.CDI ---
CDI
- -
CDI:
Physician Documentation Request
Admit Date: 06/21/23 18:32
Dear Doctor Do,
H&P states 'PMH.. persistent afib,...'
Further down in same note 'paroxysmal atrial fibrillation '
EKG on 06/22 was confirmed with atrial fibrillation
Documented vital signs has atrial fib listed as rhythm.
In an attempt to clarify potential conflicting documentation, please clarify the type of atrial fibrillation:
Paroxysmal atrial fibrillation - terminates spontaneously or with intervention within 7 days of onset
Persistent atrial fibrillation - episodes of continuous AF that last more than 7 days and do not self-terminate
Other - please specify
Use of terms such as suspected, likely, concern for, or probable (associated with a specific diagnosis that is being evaluated, monitored, or treated as if it exists) are acceptable and can be coded in the inpatient setting, when documented at the
time of discharge.
Thank you,
Rachel Brush RN, BSN
CDI Specialist
tiger text
Please use your independent medical judgment in providing your response.
--- NOTE | 2023-06-23 08:56 | W.PN.HOSP.TC ---
Today's Communication/Plan
-
see bold
Assessment / Plan
Assessment / Plan
HPI: 67-year-old male with a past medical history of atrial fibrillation on Eliquis, left ankle surgery complicated by Pseudomonas infection, hypertension, hyperlipidemia, and heart failure presents with fever and worsening erythema/swelling despite
a full course of doxycycline for cellulitis.
Severe Sepsis secondary to Left Lower Ext Cellulitis
-Patient has a history of left ankle Pseudomonas infection
-Repeat left lower extremity ultrasound negative for DVT, MRI negative for osteomyelitis
-Appreciate ID input, continue Zosyn, blood cultures neg to date
-Trend fever and WBC
Hypertension
-Hold Lasix, lisinopril
-Cap IV fluids, midodrine as needed for SBP less than 90
Persistent Atrial Fibrillation (paroxysmal ruled out)
-Continue Eliquis, Tikosyn for rhythm control
-Resumed metoprolol at decreased dose due to hypotension
Chronic HFpEF
-Hold Lasix
-Monitor IS&Os and Daily Weight
Essential Hypertension
-Hold Lisinopril due to hypotension
Hyperlipidemia
-Continue rosuvastatin
Iliac Artery Aneurysm s/p repair/stent
DVT proph: Eliquis
Code Status: Full Code
Physical Exam
General: No acute distress
HEENT: Normocephalic, Atraumatic, EOMI, MMM
Respiratory: Clear to Auscultation bilaterally
Cardiac: Normal S1/S2, Regular Rate and Rhythm
GI: Soft, Nontender, Nondistended, Normal Bowel Sounds
Extremities: No Clubbing, Cyanosis
Left lower extremity with severe edema, tenderness, and erythema that is dark in on the shins, but bright red on his posterior thighs
Neuro: Nonfocal/Grossly Intact
Anticipated Discharge: 24 - 48 hours
Subjective/Interval History
-
Date of Service: June 23, 2023
Continues to have severe LLE/ left thigh pain. No fever.
Objective Data
-
Labs:
Laboratory Results
06/23/23
04:44
WBC 13.5 H
Hgb 13.7
Hct 39.4
Plt Count 150
Sodium 135
Potassium 4.1
Chloride 114 H
Carbon Dioxide 21 L
BUN 27 H
Creatinine 0.7
Glucose 80
Calcium 7.7 L
Vital Signs:
Vital Signs
Temp Pulse Resp BP Pulse Ox
98.4 F 62 18 94/65 94
06/23/23 03:13 06/23/23 06:00 06/23/23 06:00 06/23/23 06:00 06/23/23 04:00
I&O
06/22/23 06/23/23 06/24/23
06:59 06:59 06:59
Intake Total 1430 / 1430 50 / 50
Output Total 750 / 750 1125 / 1125
Balance 680 / 680 -1075 / -1075
[2023-06-23] MEDS: TIKOSYN 250 MCG PO ×2 (09:15→20:59)
[2023-06-23] MEDS: TOPROL XL 25 MG PO (09:15)
[2023-06-23] MEDS: COLACE PO ×2 (09:15→20:58)
[2023-06-23] MEDS: ELIQUIS 5 MG PO ×2 (09:16→20:58)
--- NOTE | 2023-06-23 09:46 | W.PN.ID1 ---
Date of Service
Date of Service: June 23, 2023
Today's Communication
continue zosyn for now
awaiting MRI
Assessment / Plan
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
- treated 2020 - 6 weeks of cefepime
- hardwear retained that that time
H/o allergy to augmentin
- 04/04/21 fluid from L ankle - pseudomonas - I fear we may be seeing a relapse of a chronic infection particularly as Pseudomonas is prone to forming biofilms with assisted infections on hardwear - workup as below
- blood cultures x2 - no growth to date
- ESR and CRP in the AM
- xray reviewed- I appreciate some possible subtle loosening, await MRI of the L ankle
- may need to reconsider removal of retained hardwear pending MRI - after imaging resulted then I will consult and discuss with orthopedics, or if infection only seems to be superficial then would treat as for nonpurulent cellulitis (strep)
- continue zosyn for now
- follow clinically
Chief Complaint
-: Other (osteomyelitis vs cellulitis)
Subjective / Review of Systems
no further fevers
bp stable
leukocytosis improving
cr stable
blood cultures no growth to date
my review of the ankle xray: possible subtle loosening of the superior screws - not definite
Vital Signs / Physical Exam
Vital Signs
Vital Signs
Temp Pulse Resp BP Pulse Ox
98.3 F 62 18 94/65 94
06/23/23 07:45 06/23/23 06:00 06/23/23 06:00 06/23/23 06:00 06/23/23 04:00
Physical Exam
Constitutional: No Acute Distress
Cardiovascular: Regular Rate and S1/S2; Negative Murmur or Rub
Pulmonary: Clear and Symmetric; Negative Wheezes or Rales
Gastrointestinal: Soft, Non Tender, Non Distended and Normal Bowel Sounds
Extremities: Other (elevated)
Skin: Warm and Dry; Negative Rash or Jaundice
Wound: Other
Objective Data
Lab Data
Lab Results
06/23/23 04:44
06/23/23 04:44
Estimated Creat Clear 119 ml/min 06/23/23 04:44
Lactic Acid 1.0 mmol/L (0.7-2.0) 06/22/23 01:31
Total Bilirubin Cancelled 06/21/23 11:45
AST Cancelled 06/21/23 11:45
ALT Cancelled 06/21/23 11:45
Alkaline Phosphatase Cancelled 06/21/23 11:45
Most recent labs reviewed.
Micro Results:
06/21/23 14:14 Blood Culture - Preliminary
Blood/Venous No Growth in 24 hours- Final report to follow
06/21/23 11:45 Blood Culture - Preliminary
Blood/Venous No Growth in 24 hours- Final report to follow
--- NOTE | 2023-06-23 13:31 | PTCARENOTE ---
Escorted to MRI and monitored tele/ VS while pt pacemaker in MRI Mode. Recorded on sheet to be scanned in chart by MRI staff.
[2023-06-23] MEDS: HYDROPHOR 1 APPLIC TOPICAL (14:00)
--- NOTE | 2023-06-23 14:47 | CM ---
Patient with Dx Severe Sepsis secondary to Left Lower Ext Cellulitis. Room air. Receiving IV Zosyn.
Met with patient who resides with his in a 2 story house with 2 DIONICIO.
The patient was Independent for ADLs/ambulation using his SPC when outside.
Patient says he is currently having difficulty ambulating due to pain in his left leg and has been using a RW while here.
DME - SPC, RW, w/c
VN - prior [facility]
SNF - prior [facility]
PCP - [facility]
Pharmacy - [facility]
Message to Dr Friedman requesting PT Eval.
Plan follow up after PT Eval.
[2023-06-23] MEDS: CRESTOR 5 MG PO (17:22)
[2023-06-23] MEDS: ZOSYN 100 IV ×2 (17:22→22:46)
--- NOTE | 2023-06-23 22:39 | PTCARENOTE ---
Received pt at change of shift. Pt grossly incontinent. Applied CC#25 as pt doesn't appear to always wake when needing to urinate. Waiting on stool sample. 3L NC applied to pt for desatting to low 80s while sleeping. Pt easily arousable.
Resting comfortably in bed with call hernandez in reach.
--- NOTE | 2023-06-23 22:41 | PTCARENOTE ---
Received pt at change of shift. IV team replaced IV site. Joselyn completed infusing at this time. Pt requested that he not be woken up prior to 06:00 to be weighed on the standing scale. He stated, 'the doctor asked that I not be weighed too
early'. Pt had a 21 lb weight increased since admission. Pt is not experiencing any respiratory changes or distress with this increased weight gain. Pt agreeable to bed scale and in the event there is a large change, he will then do a standing
scale. Pt resting comfortably in bed with call hernandez in reach.
[2023-06-24] VITALS (11 sets, daily range): BP systolic 106–121; BP diastolic 66–90; PULSE 75; O2SAT 98; BMI 26.4
[2023-06-24] MEDS: ZOSYN 100 IV (04:13)
[2023-06-24 04:39] LABS: Hematocrit 37.8 % (39.0-52.0); Hemoglobin 13.3 g/dL (13.0-18.0); Mean Corp Hgb Conc. 35.2 g/dL (33.0-37.0); Mean Corpuscular Hgb 36.3 pg (27.0-31.0); Mean Corpuscular Volume 103.3 fL (80.0-94.0); Mean Platelet Volume 10.3 fL (7.4-10.4); Platelet Count 143 10^3/uL (130-400); Red Blood Cell Count 3.66 10^6/uL (4.70-6.10); Red Cell Dist. Width 16.2 % (11.5-14.5); White Blood Cell Count 13.8 10^3/uL (4.8-10.8)
[2023-06-24 04:53] LABS: Blood Urea Nitrogen 21 mg/dl (9-20); Calcium 7.8 mg/dl (8.4-10.2); Carbon Dioxide 23 mmol/L (22-30); Chloride 112 mmol/L (98-107); Estimated Creatinine Clearance > 125 ml/min; Glucose 100 mg/dl (70-99); Potassium 3.9 mmol/L (3.5-5.1); Sodium 134 mmol/L (135-145); eGFR > 60.00
[2023-06-24 07:26] LABS: Erythrocyte Sed Rate 17 mm/hour (0-20)
[2023-06-24] MEDS: COLACE PO ×2 (08:26→20:30)
[2023-06-24] MEDS: TIKOSYN 250 MCG PO ×2 (08:26→20:30)
[2023-06-24] MEDS: TOPROL XL 25 MG PO (08:26)
[2023-06-24] MEDS: ELIQUIS 5 MG PO ×2 (08:26→20:30)
[2023-06-24] MEDS: HYDROPHOR 1 APPLIC TOPICAL (08:27)
--- NOTE | 2023-06-24 08:48 | W.PN.HOSP.TC ---
Today's Communication/Plan
-
see bold
Assessment / Plan
Assessment / Plan
HPI: 67-year-old male with a past medical history of atrial fibrillation on Eliquis, left ankle surgery complicated by Pseudomonas infection, hypertension, hyperlipidemia, and heart failure presents with fever and worsening erythema/swelling despite
a full course of doxycycline for cellulitis.
Severe Sepsis secondary to Left Lower Ext Cellulitis
-Patient has a history of left ankle Pseudomonas infection
-Repeat left lower extremity ultrasound negative for DVT, MRI negative for osteomyelitis
-Appreciate ID input, change Zosyn to Ancef, blood cultures neg to date
-Trend fever and WBC
Hypotension
-Hold lisinopril
-Improved s/p IVFs, BP 111/88
Persistent Atrial Fibrillation (paroxysmal ruled out)
-Continue Eliquis, Tikosyn for rhythm control
-Resumed metoprolol at decreased dose due to hypotension
Chronic HFpEF
-Resume Lasix /
-Monitor IS&Os and Daily Weight
Essential Hypertension
-Hold Lisinopril due to hypotension
Hyperlipidemia
-Continue rosuvastatin
Iliac Artery Aneurysm s/p repair/stent
DVT proph: Eliquis
Code Status: Full Code
Total time spent to see the patient on the floor, examine the patient, review data and lab results, discuss treatment plan with patient, nursing staff around 51 minutes.
Physical Exam
General: No acute distress
HEENT: Normocephalic, Atraumatic, EOMI, MMM
Respiratory: Clear to Auscultation bilaterally
Cardiac: Normal S1/S2, Regular Rate and Rhythm
GI: Soft, Nontender, Nondistended, Normal Bowel Sounds
Extremities: No Clubbing, Cyanosis
Left lower extremity with severe edema, tenderness, and erythema that is dark in on the shins, but bright red on his posterior thighs
Right lower extremity with edema
Neuro: Nonfocal/Grossly Intact
Anticipated Discharge: 24 - 48 hours
Subjective/Interval History
-
Date of Service: June 24, 2023
Left thigh pain improved. No fever.
Objective Data
-
Labs:
Laboratory Results
06/24/23
04:23
WBC 13.8 H
Hgb 13.3
Hct 37.8 L
Plt Count 143
Sodium 134 L
Potassium 3.9
Chloride 112 H
Carbon Dioxide 23
BUN 21 H
Creatinine 0.6 L
Glucose 100 H
Calcium 7.8 L
Vital Signs:
Vital Signs
Temp Pulse Resp BP Pulse Ox
98.4 F 74 22 111/90 94
06/24/23 07:23 06/24/23 06:00 06/24/23 06:00 06/24/23 06:00 06/23/23 04:00
I&O
06/23/23 06/24/23 06/25/23
06:59 06:59 06:59
Intake Total 50 / 50 1890 / 1890
Output Total 1125 / 1125 2099 / 2099
Balance -1075 / -1075 -210 / -210
[2023-06-24] MEDS: ANCEF 10 IV ×2 (09:43→17:24)
[2023-06-24] MEDS: FLUSH (NSS) 2 FLUSH IV (09:45)
[2023-06-24] MEDS: LASIX 40 MG PO (13:13)
--- NOTE | 2023-06-24 13:18 | W.PN.ID1 ---
Date of Service
Date of Service: June 24, 2023
Today's Communication
- switch to cefazolin
- continue compression/elevation
Assessment / Plan
Nonpurulent Cellulitis
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
- treated 2020 - 6 weeks of cefepime
- hardwear retained that that time
H/o allergy to augmentin
- MRI - cellulitis with low suspicion for osteomyelitis, no abscess; will treat as streptococcal cellulitis
- baseline CRP from today on file
- switch to cefazolin
- continue compression/elevation
- follow clinically
Chief Complaint
-: Other (osteomyelitis vs cellulitis)
Subjective / Review of Systems
afebrile
bp stable
mild leukocytosis
cr stable
MRI - no evidence of osteo or fluid collection
'I feel a lot better'
swelling and erythema much improved
Vital Signs / Physical Exam
Vital Signs
Vital Signs
Temp Pulse Resp BP Pulse Ox
98.9 F 80 22 106/67 98
06/24/23 11:27 06/24/23 10:05 06/24/23 10:05 06/24/23 10:05 06/24/23 08:25
Physical Exam
Constitutional: No Acute Distress
Cardiovascular: Regular Rate and S1/S2; Negative Murmur or Rub
Pulmonary: Clear and Symmetric; Negative Wheezes or Rales
Gastrointestinal: Soft, Non Tender, Non Distended and Normal Bowel Sounds
Skin: Warm, Dry and Rash (markedly improved erythema, there is subcuticular bleeding, much improved warmth and swelling); Negative Jaundice
Objective Data
Lab Data
Lab Results
06/24/23 04:23
06/24/23 04:23
ESR 17 mm/hour (0-20) 06/24/23 04:23
Estimated Creat Clear > 125 ml/min 06/24/23 04:23
Lactic Acid 1.0 mmol/L (0.7-2.0) 06/22/23 01:31
Total Bilirubin Cancelled 06/21/23 11:45
AST Cancelled 06/21/23 11:45
ALT Cancelled 06/21/23 11:45
Alkaline Phosphatase Cancelled 06/21/23 11:45
C-Reactive Protein 157.20 mg/L (0.0-10.00) H 06/24/23 04:23
Most recent labs reviewed.
Micro Results:
06/21/23 11:45 Blood Culture - Preliminary
Blood/Venous No Growth in 72 hours- Final report to follow
06/21/23 14:14 Blood Culture - Preliminary
Blood/Venous No Growth in 48 hours- Final report to follow
--- NOTE | 2023-06-24 17:21 | CM ---
Patient with Dx Severe Sepsis secondary to Left Lower Ext Cellulitis. Receiving IV Abx. PT recommends HH. Transferred from IMU to 3W today.
Spoke with patient about VN for PT and patient agrees. He is unsure which [facility] and wishes to discuss with his .
Plan follow up with patient re; VN.
[2023-06-24] MEDS: CRESTOR 5 MG PO (17:24)
[2023-06-25] MEDS: ANCEF 10 IV ×3 (02:13→17:26)
[2023-06-25 03:00] VITALS: BP 114/69
[2023-06-25 06:00] VITALS: BMI 27.5
[2023-06-25 07:00] VITALS: BP 125/81
[2023-06-25 07:01] LABS: Hematocrit 37.6 % (39.0-52.0); Hemoglobin 13.2 g/dL (13.0-18.0); Mean Corp Hgb Conc. 35.1 g/dL (33.0-37.0); Mean Corpuscular Hgb 37.1 pg (27.0-31.0); Mean Corpuscular Volume 105.6 fL (80.0-94.0); Mean Platelet Volume 9.9 fL (7.4-10.4); Platelet Count 146 10^3/uL (130-400); Red Blood Cell Count 3.56 10^6/uL (4.70-6.10); Red Cell Dist. Width 16.1 % (11.5-14.5); White Blood Cell Count 11.8 10^3/uL (4.8-10.8)
--- NOTE | 2023-06-25 07:23 | W.PN.HOSP.TC ---
Today's Communication/Plan
-
see bold
Assessment / Plan
Assessment / Plan
HPI: 67-year-old male with a past medical history of atrial fibrillation on Eliquis, left ankle surgery complicated by Pseudomonas infection, hypertension, hyperlipidemia, and heart failure presents with fever and worsening erythema/swelling despite
a full course of doxycycline for cellulitis.
Severe Sepsis secondary to Left Lower Ext Cellulitis
-Patient has a history of left ankle Pseudomonas infection
-Repeat left lower extremity ultrasound negative for DVT, MRI negative for osteomyelitis
-Appreciate ID input, s/p Zosyn, continue Ancef, blood cultures neg to date
-Trend fever and WBC
Hypotension
-Hold lisinopril
-Resolved s/p IVFs
Persistent Atrial Fibrillation (paroxysmal ruled out)
-Continue Eliquis, Tikosyn for rhythm control
-Resumed metoprolol at decreased dose due to hypotension
Chronic HFpEF
-Resumed Lasix /
-Monitor IS&Os and Daily Weight
Essential Hypertension
-Hold Lisinopril due to hypotension
Hyperlipidemia
-Continue rosuvastatin
Iliac Artery Aneurysm s/p repair/stent
DVT proph: Eliquis
Code Status: Full Code
Total time spent to see the patient on the floor, examine the patient, review data and lab results, discuss treatment plan with patient, nursing staff around 51 minutes.
Physical Exam
General: No acute distress
HEENT: Normocephalic, Atraumatic, EOMI, MMM
Respiratory: Clear to Auscultation bilaterally
Cardiac: Normal S1/S2, Regular Rate and Rhythm
GI: Soft, Nontender, Nondistended, Normal Bowel Sounds
Extremities: No Clubbing, Cyanosis
Left lower extremity with severe edema, tenderness, and erythema that is dark in on the shins, but bright red on his posterior thighs
Right lower extremity with edema
Neuro: Nonfocal/Grossly Intact
Anticipated Discharge: 24 - 48 hours
Subjective/Interval History
-
Date of Service: June 25, 2023
Left thigh pain continues to improve. No fever.
Objective Data
-
Labs:
Laboratory Results
06/25/23
06:48
WBC 11.8 H
Hgb 13.2
Hct 37.6 L
Plt Count 146
Sodium Pending
Potassium Pending
Chloride Pending
Carbon Dioxide Pending
BUN Pending
Creatinine Pending
Glucose Pending
Calcium Pending
Vital Signs:
Vital Signs
Temp Pulse Resp BP Pulse Ox
98.6 F 73 16 114/69 96
06/25/23 03:00 06/25/23 03:00 06/25/23 03:00 06/25/23 03:00 06/25/23 03:00
I&O
06/24/23 06/25/23 06/26/23
06:59 06:59 06:59
Intake Total 1890 / 1890 840 / 840
Output Total 2099 875 / 875
Balance -210 / -210 -35 / -35
[2023-06-25] MEDS: ELIQUIS 5 MG PO ×2 (07:45→20:55)
[2023-06-25] MEDS: LASIX 40 MG PO (07:45)
[2023-06-25] MEDS: TIKOSYN 250 MCG PO ×2 (07:46→20:55)
[2023-06-25] MEDS: TOPROL XL 25 MG PO (07:46)
[2023-06-25] MEDS: COLACE PO ×3 (07:46→21:04)
[2023-06-25] MEDS: HYDROPHOR 1 APPLIC TOPICAL (07:49)
[2023-06-25 08:34] LABS: Blood Urea Nitrogen 18 mg/dl (9-20); Calcium 7.6 mg/dl (8.4-10.2); Carbon Dioxide 24 mmol/L (22-30); Chloride 110 mmol/L (98-107); Estimated Creatinine Clearance > 125 ml/min; Glucose 85 mg/dl (70-99); Potassium 3.7 mmol/L (3.5-5.1); Sodium 133 mmol/L (135-145); eGFR > 60.00
[2023-06-25 11:00] VITALS: BP 110/62
[2023-06-25 15:00] VITALS: BP 128/88
[2023-06-25] MEDS: CRESTOR 5 MG PO (17:30)
--- NOTE | 2023-06-25 17:53 | W.PN.ID1 ---
Date of Service
Date of Service: June 25, 2023
Today's Communication
Continue abx.
Assessment / Plan
Nonpurulent Cellulitis
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
- treated 2020 - 6 weeks of cefepime
- hardwear retained that that time
H/o allergy to augmentin
- MRI - cellulitis with low suspicion for osteomyelitis, no abscess; treating as streptococcal cellulitis
- baseline CRP from today on file
- continue cefazolin
- continue compression/elevation
- follow clinically
Chief Complaint
-: Other (cellulitis)
Subjective / Review of Systems
Review of Systems: No Fever and No Chills
Vital Signs / Physical Exam
Vital Signs
Vital Signs
Temp Pulse Resp BP Pulse Ox
98.1 F 82 24 128/88 97
06/25/23 15:00 06/25/23 15:00 06/25/23 15:00 06/25/23 15:00 06/25/23 15:00
Physical Exam
Constitutional: No Acute Distress, Comfortable and Non-toxic
Eyes: Sclera Anicteric
Pulmonary: Non Labored
Extremities: Edema (LLE) and Erythema (LLE)
Neurological: Awake and Alert
Psychological: Calm
Objective Data
Lab Data
Lab Results
06/25/23 06:48
06/25/23 06:48
ESR 17 mm/hour (0-20) 06/24/23 04:23
Estimated Creat Clear > 125 ml/min 06/25/23 06:48
Lactic Acid 1.0 mmol/L (0.7-2.0) 06/22/23 01:31
Total Bilirubin Cancelled 06/21/23 11:45
AST Cancelled 06/21/23 11:45
ALT Cancelled 06/21/23 11:45
Alkaline Phosphatase Cancelled 06/21/23 11:45
C-Reactive Protein 157.20 mg/L (0.0-10.00) H 06/24/23 04:23
Most recent labs reviewed.
Micro Results:
06/21/23 14:14 Blood Culture - Preliminary
Blood/Venous No Growth in 4 days- Final report to follow
06/21/23 11:45 Blood Culture - Preliminary
Blood/Venous No Growth in 4 days- Final report to follow
[2023-06-25 19:00] VITALS: BP 109/70
[2023-06-25 23:00] VITALS: BP 109/67
[2023-06-26] MEDS: ANCEF 10 IV ×2 (02:01→10:19)
[2023-06-26] MEDS: FLUSH (NSS) 1 FLUSH IV (02:01)
[2023-06-26 03:20] VITALS: BP 108/78
[2023-06-26 06:00] VITALS: BMI 27.4
[2023-06-26 07:00] VITALS: BP 113/74
[2023-06-26 08:24] LABS: Hemoglobin 13.4 g/dL (13.0-18.0); Mean Corp Hgb Conc. 35.3 g/dL (33.0-37.0); Mean Corpuscular Hgb 37.6 pg (27.0-31.0); Mean Corpuscular Volume 106.7 fL (80.0-94.0); Mean Platelet Volume 10.3 fL (7.4-10.4); Platelet Count 164 10^3/uL (130-400); Red Blood Cell Count 3.56 10^6/uL (4.70-6.10); Red Cell Dist. Width 15.9 % (11.5-14.5); White Blood Cell Count 10.5 10^3/uL (4.8-10.8)
--- NOTE | 2023-06-26 08:24 | W.PN.HOSP.TC ---
Today's Communication/Plan
-
see bold
Assessment / Plan
Assessment / Plan
HPI: 67-year-old male with a past medical history of atrial fibrillation on Eliquis, left ankle surgery complicated by Pseudomonas infection, hypertension, hyperlipidemia, and heart failure presents with fever and worsening erythema/swelling despite
a full course of doxycycline for cellulitis.
Severe Sepsis secondary to Left Lower Ext Cellulitis
-Patient has a history of left ankle Pseudomonas infection
-Repeat left lower extremity ultrasound negative for DVT, MRI negative for osteomyelitis
-Appreciate ID input, s/p Zosyn, continue Ancef, blood cultures neg to date
-Trend fever and WBC
-Discharge when cleared by ID
Hypotension
-Hold lisinopril
-Resolved s/p IVFs
Persistent Atrial Fibrillation (paroxysmal ruled out)
-Continue Eliquis, Tikosyn for rhythm control
-Resumed metoprolol at decreased dose due to hypotension
Chronic HFpEF
-Resumed Lasix 2/15
-Monitor IS&Os and Daily Weight
Essential Hypertension
-Hold Lisinopril due to hypotension
Hyperlipidemia
-Continue rosuvastatin
Iliac Artery Aneurysm s/p repair/stent
DVT proph: Eliquis
Code Status: Full Code
Physical Exam
General: No acute distress
HEENT: Normocephalic, Atraumatic, EOMI, MMM
Respiratory: Clear to Auscultation bilaterally
Cardiac: Normal S1/S2, Regular Rate and Rhythm
GI: Soft, Nontender, Nondistended, Normal Bowel Sounds
Extremities: No Clubbing, Cyanosis
Left lower extremity with severe edema, tenderness, and erythema that is dark in on the shins, but bright red on his posterior thighs, much improved from prior
Right lower extremity with edema
Neuro: Nonfocal/Grossly Intact
Anticipated Discharge: 24 - 48 hours
Subjective/Interval History
-
Date of Service: June 26, 2023
Left thigh pain continues to improve. No fever.
Objective Data
-
Labs:
Laboratory Results
06/26/23
07:04
WBC Pending
Hgb Pending
Hct Pending
Plt Count Pending
Sodium Pending
Potassium Pending
Chloride Pending
Carbon Dioxide Pending
BUN Pending
Creatinine Pending
Glucose Pending
Calcium Pending
Vital Signs:
Vital Signs
Temp Pulse Resp BP Pulse Ox
98.3 F 72 18 113/74 94
06/26/23 07:00 06/26/23 07:00 06/26/23 07:00 06/26/23 07:00 06/26/23 07:00
I&O
06/25/23 06/26/23 06/27/23
06:59 06:59 06:59
Intake Total 840 / 840 1100 / 1100
Output Total 875 / 875 2175 / 2175
Balance -35 / -35 -1075 / -1075
[2023-06-26 08:34] LABS: Blood Urea Nitrogen 23 mg/dl (9-20); Calcium 7.9 mg/dl (8.4-10.2); Carbon Dioxide 26 mmol/L (22-30); Chloride 105 mmol/L (98-107); Estimated Creatinine Clearance > 125 ml/min; Glucose 84 mg/dl (70-99); Potassium 3.6 mmol/L (3.5-5.1); Sodium 136 mmol/L (135-145); eGFR > 60.00
[2023-06-26] MEDS: TIKOSYN 250 MCG PO (10:18)
[2023-06-26] MEDS: ELIQUIS 5 MG PO (10:19)
[2023-06-26] MEDS: TOPROL XL 25 MG PO ×2 (10:19→15:31)
[2023-06-26] MEDS: LASIX 80 MG PO (10:19)
[2023-06-26] MEDS: COLACE 100 MG PO (10:20)
[2023-06-26] MEDS: HYDROPHOR 1 APPLIC TOPICAL (10:20)
[2023-06-26 11:00] VITALS: BP 119/70
[2023-06-26 12:07] VITALS: BP 106/67; PULSE 75; O2SAT 98
--- NOTE | 2023-06-26 14:49 | W.DCSUMMARY ---
Discharge Summary
Discharge Data
Date of Admission: 06/21/23
Date of Discharge: 06/26/23
-
Pending Results: No
Hospital Course
Discharge diagnosis:
Sepsis
Left lower extremity cellulitis
Hypotension
Persistent atrial fibrillation on Eliquis
Chronic heart failure with preserved ejection fraction
History of benign essential hypertension
Hyperlipidemia
Consults: ID
Left ankle MRI:
Severe irregular joint space narrowing of the tibiotalar articulation with prominent subchondral diffuse signal abnormality and enhancement. Findings are felt to most likely represent degenerative changes of the tibiotalar articulation, with
significant progression since 2020.
Findings are felt to be of relatively low suspicion for osteomyelitis and septic arthritis.
Significant subcutaneous edema of the left lower leg, ankle, and foot. No evidence of a focal collection to suggest an abscess.
Hospital course:
67-year-old male with a past medical history of atrial fibrillation on Eliquis, left ankle surgery complicated by Pseudomonas infection, hypertension, hyperlipidemia, and heart failure presents with fever and worsening erythema/swelling despite a
full course of doxycycline for cellulitis.
Patient was treated with IV Zosyn to cover for Pseudomonas. He was seen in conjunction with ID. Left ankle MRI was negative for infection. Blood cultures were negative. He was transitioned from IV Zosyn to IV Ancef.
Patient also was hypotensive upon admission. His lisinopril, metoprolol, and furosemide were held. He received IV fluids and midodrine as needed.
After several days, his blood pressure improved. His Lasix was resumed. His metoprolol succinate was resumed at a decreased dose of 50 mg daily instead of 100 mg daily. He was counseled to hold his lisinopril upon discharge. He needs to
follow-up with his primary care doctor for repeat blood pressure check. They will give him further directions regarding his medications.
Patient was medically stable and cleared by ID for discharge on Keflex 500 mg 4 times daily for 7 more days. He needs to follow-up with his primary care doctor 1 week.
Disposition: Home with home care
Discharge planning: Required 36 minutes
Discharge Plan
-
Patient Disposition: Home with Home Care
Discharge Diagnosis/Procedures: Acute left lower extremity cellulitis, probable strep, hypotension, persistent atrial fibrillation
Condition: Good
Diet: Low Cholesterol and 2 Gram Sodium
Activity: As tolerated
Driving Restrictions: As prior to admission
Other Services: VN and PT
Activity Restrictions/Additional Instructions:
Your blood pressure in the hospital was low. We recommend you hold your lisinopril.
We have also decreased the dose of your metoprolol succinate from 100 mg daily to 50 mg daily.
Follow-up with your primary care doctor in 1 week for blood pressure check.
If your blood pressure becomes high, your primary care doctor can advise you to resume your medications as needed.
Follow-up with your campground attendant in the office as well.
Referrals:
Napoleon North MD [Family Provider] - in one week
Prescriptions:
New
metoprolol succinate 50 mg tablet extended release 24 hr
50 mg PO DAILY Qty: 30 0RF
cephalexin 500 mg capsule
500 mg PO QID 7 Days Qty: 28 0RF
Continued
furosemide 40 mg Tablet
40 mg PO DAILY Qty: 30 1RF
dofetilide 250 mcg Capsule
250 mcg PO Q12H Qty: 60 3RF
Eliquis 5 mg Tablet
5 mg PO BID Qty: 60 0RF
rosuvastatin 5 mg Tablet
5 mg PO QPM Qty: 30 0RF
ascorbic acid (vitamin C) [Vitamin C] 500 mg Tablet
500 mg PO DAILY
Held
lisinopril 5 mg Tablet
10 mg PO QPM Qty: 30 0RF
Hold Instructions: Resume on 07/12/23.
Discontinued
metoprolol succinate 100 mg Tablet Extended Release 24 Hr
100 mg PO DAILY Qty: 30 0RF
Discharge Orders:
Discharge Patient (As Directed); Ordered 06/26/23
Ordered By: Deven Friedman
Discharge Date and Time
Discharge Date/Time: 06/26/23 16:20
--- NOTE | 2023-06-26 14:52 | W.PN.ID1 ---
Date of Service
Date of Service: June 26, 2023
Today's Communication
Continue antibiotics. See below�
Assessment / Plan
Nonpurulent Cellulitis
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
- treated 2020 - 6 weeks of cefepime
- hardwear retained that that time
H/o allergy to augmentin
- MRI - cellulitis with low suspicion for osteomyelitis, no abscess; treating as streptococcal cellulitis
- baseline CRP from today on file
Overall clinically improved.
Transition to Keflex 500 mg p.o. 4 times daily for an additional 7 days.
Chief Complaint
-: Other (cellulitis)
Subjective / Review of Systems
Review of Systems: No Fever and No Chills
Vital Signs / Physical Exam
Vital Signs
Vital Signs
Temp Pulse Resp BP Pulse Ox
98.0 F 66 17 119/70 95
06/26/23 11:00 06/26/23 11:00 06/26/23 11:00 06/26/23 11:00 06/26/23 11:00
Physical Exam
Constitutional: No Acute Distress, Comfortable and Non-toxic
Eyes: Sclera Anicteric
Pulmonary: Non Labored
Extremities: Edema and Erythema
Neurological: Awake and Alert
Psychological: Calm
Objective Data
Lab Data
Lab Results
06/26/23 07:04
06/26/23 07:04
ESR 17 mm/hour (0-20) 06/24/23 04:23
Estimated Creat Clear > 125 ml/min 06/26/23 07:04
Lactic Acid 1.0 mmol/L (0.7-2.0) 06/22/23 01:31
Total Bilirubin Cancelled 06/21/23 11:45
AST Cancelled 06/21/23 11:45
ALT Cancelled 06/21/23 11:45
Alkaline Phosphatase Cancelled 06/21/23 11:45
C-Reactive Protein 157.20 mg/L (0.0-10.00) H 06/24/23 04:23
Most recent labs reviewed.
Micro Results:
06/21/23 14:14 Blood Culture - Final
Blood/Venous No Growth - Final Report
06/21/23 11:45 Blood Culture - Final
Blood/Venous No Growth - Final Report
Care Review
Plan reviewed with: Physician (Hospitalist)
[2023-06-26 15:00] VITALS: BP 114/68
--- NOTE | 2023-06-26 15:27 | CM ---
Addendum entered by Vivienne May RN 06/26/23 15:30:
Referral to [facility].
Original Note:
Patient with Dx Severe Sepsis secondary to Left Lower Ext Cellulitis. PT recommends HH.
Met with patient and ; both agree to d/c home today. IMM completed. Patient & would like [facility] for nurse check - unsure he will need PT at home and may ask PCP for script for outpatient PT in a few weeks.
Plan [facility] today [facility].
--- NOTE | 2023-06-26 16:12 | PTCARENOTE ---
Discussed discharge information with Pt and at bedside. Iv access and tele removed. Belongings from room taken. Staff wheeled Pt to exit. to drive Pt home.
== END 2023-06-26 16:20 | disposition home health service (06) | DRG 872 ==
LOC: 3 WEST ACU 18:32
PROVIDERS: Physician Assistant; Physician Assistant Medical; ADMITTING PHYSICIAN Family Medicine; CONSULT PHYSICIAN Student in an Organized Health Care Education/Training Program; EMERGENCY PHYSICIAN Emergency Medicine; FAMILY PHYSICIAN Internal Medicine
DX: A41.9 Sepsis, unspecified organism (principal); L03.116 Cellulitis of left lower limb; I50.32 Chronic diastolic (congestive) heart failure; I48.19 Other persistent atrial fibrillation; R65.20 Severe sepsis without septic shock; B96.5 Pseudomonas (aeruginosa) (mallei) (pseudomallei) as the cause of diseases classified elsewhere; E78.00 Pure hypercholesterolemia, unspecified; I95.9 Hypotension, unspecified; I72.3 Aneurysm of iliac artery; Z79.01 Long term (current) use of anticoagulants
CPT/HCPCS: 71046; 73610; 73723; 80048; 83605; 83735; 84132; 84550; 85025; 85027; 85652; 86140; 87040; 93005; 93970; 96361; 96365; 96375; 97116; 97162; 99284; A9575

== ENCOUNTER → 2023-06-30 13:12 | Outpatient (REF) | payer MEDICARE, BC, SELFPAY ==
[2023-06-30 13:45] LABS: ALT (SGPT) 27 U/L (0-50); AST (SGOT) 42 U/L (17-59); Albumin 2.6 g/dl (3.5-5.0); Alkaline Phosphatase 205 U/L (38-126); Blood Urea Nitrogen 26 mg/dl (9-20); Calcium 8.3 mg/dl (8.4-10.2); Carbon Dioxide 28 mmol/L (22-30); Chloride 108 mmol/L (98-107); Glucose 84 mg/dl (70-99); Potassium 3.8 mmol/L (3.5-5.1); Sodium 137 mmol/L (135-145); Total Bilirubin 2.1 mg/dl (0.2-1.3); Total Protein 5.8 g/dl (6.3-8.2); eGFR > 60.00
== END ==
LOC: CLAB 13:12
PROVIDERS: ATTENDING PHYSICIAN Thoracic Surgery (Cardiothoracic Vascular Surgery)
DX: I50.9 Heart failure, unspecified (principal)
CPT/HCPCS: 36415; 80053; 83735

== ENCOUNTER → 2023-07-15 15:32 | Outpatient (REF) | payer MEDICARE, BC, SELFPAY | LOC: RAD 15:32 | PROVIDERS: ATTENDING PHYSICIAN Nurse Practitioner Adult Health | DX: R09.89 Other specified symptoms and signs involving the circulatory and respiratory systems (principal) | CPT/HCPCS: 71046 ==

== ENCOUNTER 2023-10-12 10:34 | Day surgery (SDC) | payer MEDICARE, BC, SELFPAY ==
[2023-10-06 10:05] VITALS: BMI 25.2
[2023-10-12] VITALS (8 sets, daily range): BP systolic 98–112; BP diastolic 67–75; BMI 24.9
--- NOTE | 2023-10-12 14:14 | ITS.CL.PN ---
[facility] - Procedure Note
Procedure
Procedure Note:
Attempted Atrial fibrillation ablation:
Mr. Price is a very pleasant 68 yr old gentleman with persistent atrial fibrillation / flutter, failed Tikosyn, sustained slow ventricular tachycardia, restrictive lung disease, and vascular disease with aorto iliac stents who presents for AF/AFL
ablation.
Indications: Symptomatic persistent atrial fibrillation with heart failure
Date of the Procedure:
10/12/2023
Pre-Operative Diagnosis: Symptomatic persistent atrial fibrillation with heart failure
Post-Operative Diagnosis: Symptomatic persistent atrial fibrillation with acute on chronic heart failure
Procedure Performed: Venogram and attempted atrial fibrillation ablation.
Performing Physician:
Julissa Loco MD
Anesthesia:
See anesthesia records
Detailed Description of the Procedure:
Written informed consent was obtained from the patient after a full explanation of the risks and benefits of the procedure including the risks of sedation and anesthesia.
The patient was brought to the electrophysiology laboratory in stable condition in fasting state. Continuous electrocardiographic and hemodynamic monitoring was initiated.
The initial rhythm was atrial fibrillation.
The procedure site was meticulously prepared with surgical scrub and allowed to dry with no pooling. Sterile draping was applied to cover the procedure site. The image intensifier was draped with sterile bag and positioned over the patient.
After infusion of local anesthetic, vascular access was obtained under ultrasound guidance and sheaths were placed over guide wire as detailed below.
A total of 8 Sudanese, 7 Sudanese and 9 Sudanese sheaths were placed in the right femoral vein.
An ice catheter AcuNav was placed in the 9 Sudanese and femoral veins were imaged.� There was no significant access to IVC noted based on the ice imaging.� Decision was made to place guidewire but was not able to advance into the IVC.
Guidewires could not be advanced into the IVC with iliac vein occlusion/stenosis. A venogram was done that shows multiple collaterals with no flow from femoral vein to the IVC. Multiple attempts were done for guidewires to reach IVC which were not
successful. Eventually Glidewire/trumo was used but was not able to reach the IVC from the femoral vein.
Decision was made to access the left groin and 4 Sudanese sheath was placed into the left femoral vein. Venogram was done that again showed collaterals with no flow going from femoral vein to the IVC. There was iliac artery stents on both sides
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
Procedure End
The sheaths were removed and hemostasis achieved with manual compression.
Estimated Blood loss:
<5 cc
Specimens Removed:
None.
Implants / Devices:
None
Urine output:
None
Packs / Drains/ Tubes:
None
Instrument / Sponge Count Correct:
Yes
Complications of the Procedure:
None
Condition of Patient at Time of Transfer:
Stable.� Extubated
Summary:
Attempted atrial fibrillation ablation, limited intravascular ultrasound using AcuNav/ice, venogram of the lower extremity and attempted venoplasty without any success.
Recommendation
-Recover from the venous access with 4-hour bedrest. Discharge home today.
-Plan for BiV ICD upgrade with CS lead implantation versus left bundle district branch manager implantation
-Plan for AVJ ablation
== END 2023-10-12 17:00 | disposition home or self-care (01) ==
LOC: CATH 10:34
PROVIDERS: ATTENDING PHYSICIAN Internal Medicine Cardiovascular Disease; FAMILY PHYSICIAN Internal Medicine; OTHER PHYSICIAN Internal Medicine Cardiovascular Disease
DX: I48.19 Other persistent atrial fibrillation (principal); Z88.0 Allergy status to penicillin; I47.20 Ventricular tachycardia, unspecified; Z95.810 Presence of automatic (implantable) cardiac defibrillator; I50.32 Chronic diastolic (congestive) heart failure; Z79.01 Long term (current) use of anticoagulants; I10 Essential (primary) hypertension; J44.9 Chronic obstructive pulmonary disease, unspecified; I70.209 Unspecified atherosclerosis of native arteries of extremities, unspecified extremity; Z95.820 Peripheral vascular angioplasty status with implants and grafts; I48.92 Unspecified atrial flutter
CPT/HCPCS: 36005; C1769 ×2; C1733; C1894; C1730; C1892; C1759; 75820; 76937; 93656; Q9967

== ENCOUNTER → 2023-12-21 10:54 | Outpatient (REF) | payer MEDICARE, BC, SELFPAY | LOC: RAD 10:54 | PROVIDERS: ATTENDING PHYSICIAN Internal Medicine | DX: R07.81 Pleurodynia (principal) | CPT/HCPCS: 71101 ==

== ENCOUNTER → 2023-12-24 11:27 | Outpatient (REF) | payer MEDICARE, BC, SELFPAY | LOC: RAD 11:27 | PROVIDERS: ATTENDING PHYSICIAN Internal Medicine | DX: S22.42XA Multiple fractures of ribs, left side, initial encounter for closed fracture (principal) | CPT/HCPCS: 71046 ==

== ENCOUNTER → 2024-01-20 09:22 | Outpatient (REF) | payer MEDICARE, BC, SELFPAY | LOC: RCS 09:22 | PROVIDERS: ATTENDING PHYSICIAN Internal Medicine Cardiovascular Disease; FAMILY PHYSICIAN Internal Medicine | DX: I48.19 Other persistent atrial fibrillation (principal) | CPT/HCPCS: 93225; 93226 ==

== ENCOUNTER → 2024-02-03 10:25 | Outpatient (REF) | payer MEDICARE, BC, SELFPAY | LOC: HWRCS 10:25 | PROVIDERS: ATTENDING PHYSICIAN Internal Medicine Cardiovascular Disease; FAMILY PHYSICIAN Internal Medicine | DX: I48.19 Other persistent atrial fibrillation (principal); I77.810 Thoracic aortic ectasia | CPT/HCPCS: 93306 ==

== ENCOUNTER → 2024-02-24 10:47 | Outpatient (REF) | payer MEDICARE, BC, SELFPAY | LOC: RAD 10:47 | PROVIDERS: ATTENDING PHYSICIAN Internal Medicine Rheumatology; FAMILY PHYSICIAN Internal Medicine | DX: M81.0 Age-related osteoporosis without current pathological fracture (principal) | CPT/HCPCS: 77080; 77081 ==

== ENCOUNTER → 2024-03-14 14:03 | Outpatient (REF) | payer MEDICARE, BC, SELFPAY | LOC: MRI 14:03 | PROVIDERS: ATTENDING PHYSICIAN Specialist; FAMILY PHYSICIAN Internal Medicine | DX: M51.360 Other intervertebral disc degeneration, lumbar region with discogenic back pain only (principal) | CPT/HCPCS: 72148 ==

== ENCOUNTER 2025-02-08 10:30 | Emergency (ER) | payer MEDICARE, BC, SELFPAY ==
[2025-02-08] VITALS (7 sets, daily range): BP systolic 88–100; BP diastolic 52–78; PULSE 70–88
[2025-02-08] MEDS: NSS 500 IV (11:15)
--- NOTE | 2025-02-08 11:23 | ED.GENMED ---
History of Present Illness
General
Chief Complaint: Fall
Source: patient and family
Time Seen by Provider: 02/08/25 10:58
History of Present Illness
History of Present Illness:
69-year-old male with past medical history of atrial fibrillation, hypertension status post ICD placement presenting to the emergency department for evaluation after he had 2 episodes of near syncope upon awakening this morning stating the first
time he got up from bed and felt lightheaded so was able to sit back down, started to feel better so he ambulated to the bathroom but upon getting to the bathroom he did have an episode that caused him to fall to the ground injuring his left
buttock/hip. Patient was able to ambulate following the event but is having continued pain to this area. He is anticoagulated on Eliquis, denies any head injury, current headaches, LOC, vomiting, visual changes or any other extremity related pain.
Patient did note today that his blood pressure was lower than usual noting that ever since starting spironolactone around 1 year ago, his blood pressures have been usually in the low 100s systolically. Also of note, patient had dental work done
last week, currently still taking an oral antibiotic for this.
Past History
Past History
ED Past Medical History: Arrthythmia (afib), HTN and Hypercholesterolemia
ED Past Surgical History: Cardiac, Orthopedic (right hip replacement), Tonsilectomy and Other
Social History
Tobacco: Non-smoker
Alcohol: Occasional
Drug: None
Personal:
Living: with family
Employment: Employed
Family History
Family History: Other (n/c)
Review of Systems
Review of Systems
All Other Systems: ROS reviewed and negative except as documented in HPI and ROS
Phy Exam
Physical Exam
Physical Exam:
GENERAL: Alert , in no apparent distress
VITAL SIGNS: blood pressure at time of my exam is 88/62
EYE: clear conjunctiva b/l
HEAD: NCAT
ENT: o/p clr, mmm.
CARDIAC: Regular rate and rhythm, systolic murmur LSB .
LUNGS: Clear breath sounds bilaterally, no acute respiratory distress, no wheezes/rales/rhonchi
ABDOMEN: Soft, without focal tenderness, no r/g, no cvat
NEUROLOGICAL: Alert and oriented
SKIN: Warm and dry, skin intact.
MUSCULOSKELETAL: well perfused. LLE: no obvious signs of external trauma. Allows for FROM with minimal pain
PSYCH: Normal and appropriate interaction.
Scores
Heart Failure Risk
Heart Failure Risk Score: Not Applicable
Heart Score for Chest Pain Patients
STEMI patient?: Not applicable
Withdrawal Assessment of Alcohol
Withdrawal Assessment Completed?: Not applicable
Course
Orders/Labs/Results
Orders:
Orders
02/08/25 10:44
EKG [Electrocardiogram (*1)] Urgent
Reason for Study: Syncope
EKG- Treatment ONCE
02/08/25 11:13
CT Head W/o Iv Contrast Urgent
Comment:
Reason For Exam: fall, on eliquis
Orthostatic VS- Treatment ONCE
0.9% Sodium Chloride 500 ml [Nss] 500 ml IV BOLUS
CR Hip - LT w/wo Pel 2-3 Vw* Urgent
Comment:
Reason For Exam: fall, pain
Include a pelvis x-ray?: Yes
02/08/25 11:15
Complete Blood Count/With Diff Urgent
Comprehensive Metabolic Panel Urgent
02/08/25 12:13
Lactic Acid Q4H
Comment: CANCEL 2nd LACTIC ACID IF 1st LACTIC ACID IS LESS THAN 2
Blood Culture Q30M
MARGARET Source: Blood/Venous
Specimen Description:
02/08/25 12:16
Blood Culture Q30M
MARGARET Source: Blood/Venous
Specimen Description:
02/08/25 13:23
Urinalysis Reflex To Culture Urgent
Date Specimen was Collected: 10/02/25
Time Specimen was Collected: 13:21
Urine Microscopic Reflex Cult Urgent
Urine Culture Urgent
MARGARET Source: U
Specimen Description:
Date Specimen was Collected: 02/08/25
Time Specimen was Collected: 13:21
02/08/25 13:24
CT Pelvis W/o Iv Contrast Urgent
Comment:
Reason For Exam: fall, left hip pain, difficulty ambulating
02/08/25 13:25
Interrogate Pacemaker- Treatment ONCE
02/08/25 15:45
Lactic Acid Q4H
Comment: CANCEL 2nd LACTIC ACID IF 1st LACTIC ACID IS LESS THAN 2
Abnormal Lab Results
02/08/25 02/08/25 02/08/25
11:15 12:13 13:23
WBC 13.6 H 10^3/uL
(4.8-10.8)
RBC 4.13 L 10^6/uL
(4.70-6.10)
MCV 101.5 H fL
(80.0-94.0)
MCH 35.4 H pg
(27.0-31.0)
RDW 14.8 H %
(11.5-14.5)
Plt Count 129 L 10^3/uL
(130-400)
MPV 10.7 H fL
(7.4-10.4)
Abs Immat Gran (auto) 0.1 H 10^3/uL
(0-0.05)
Absolute Neuts (auto) 10.3 H 10^3/uL
(1.4-6.5)
Absolute Monos (auto) 1.2 H 10^3/uL
(0.1-0.6)
Neutrophils % 75.8 H %
(42.2-75.2)
Lymphocytes % 13.5 L %
(20.5-51.1)
Sodium 134 L mmol/L
(135-145)
Chloride 112 H mmol/L
(98-107)
Carbon Dioxide 18 L mmol/L
(22-30)
BUN 29 H mg/dl
(9-20)
Lactic Acid 2.1 H mmol/L
(0.7-2.0)
Total Bilirubin 3.1 H mg/dl
(0.2-1.3)
Total Protein 6.1 L g/dl
(6.3-8.2)
Albumin 3.2 L g/dl
(3.5-5.0)
Urine Ketones 1+ A
(Negative)
Ur Occult Blood Reflex 4+ A
(Negative)
Leukocyte Esterase Rfl 1+ A
(Negative)
Urine RBC 90-100 A /HPF
(0-2)
Urine Albumin (Reflex) 2+ A
(Neg - Trace)
02/08/25 11:15
02/08/25 11:15
Vital Signs
Initial and Last Documented VS:
Initial Vital Signs
Temp Pulse Resp BP Pulse Ox
97.6 F 70 16 91/52 96
02/08/25 10:40 02/08/25 10:40 02/08/25 10:40 02/08/25 10:40 02/08/25 10:40
Last Documented Vital Signs
Temp Pulse Resp BP Pulse Ox
97.6 F 72 16 100/69 97
02/08/25 10:40 02/08/25 14:00 02/08/25 14:00 02/08/25 14:00 02/08/25 14:05
MDM/Problems Addressed
Differential Diagnosis Includes:
Orthostasis
Hypotension
Medication Side Effects/Interactions
No obvious infectious symptoms
ICH
Hip/Pelvic fx
Cardiogenic syncope
MDM/Problems Addressed:
69-year-old male presenting to the ER for evaluation of 2 episodes of near syncope, the second episode did cause him to fall to the ground although he notes there was no LOC. Patient anticoagulated on Eliquis. He denies any head injury or
neurologic symptoms but will obtain CT of the head to further evaluate. X-ray of the hip/pelvis ordered. Labs ordered. 500mL NSS bolus ordered for hypotension
Chronic conditions affecting care: Arrhythmia
*Radiology
Radiology exam reviewed: radiology read reviewed
*Pulse Oximetry
SaO2: 96
Oxygen Mode of Delivery: Room air
Patient hypoxic: no
*EKG
Heart Rate: 75
Rate: normal
Rhythm: a-fib
[place]well: left axis deviation
Ischemia: T-wave inversion (inferior leads)
*Voltage Tester Interpretation
Rate: normal
Heart Rate: 74
Rhythm: a-fib
Data Reviewed
Review of Other/Old Records Reveals: Labs, Records and Operative Reports
Source: patient, records and family
Comment
Comment:
Following IV fluids patient did state he was feeling better, blood pressure is now in the low 100s systolically which he states is back to around his baseline. Lab findings noted for slight leukocytosis. Questionably related to infection as
patient is now telling me last week he did recently passed a kidney stone, question urinary tract infection, no symptoms to suggest upper respiratory infection. I did order a lactic acid as well which was 2.1. I still suspect patient's hypotension
is likely related to medication. Imaging unremarkable however patient is noting a little bit harder time ambulating and increased pain to the left hip. X-ray noted for no acute fracture but given the continued pain and ambulatory troubles will
obtain a CT scan of the hip/pelvis to ensure no fracture. I did discuss with patient and family possibility of being admitted for continued observation and trending of his labs however they ultimately do prefer to be discharged home assuming the
rest of the scans/test is unremarkable. 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
ED Attending Note
-
Portions of this chart may have been created with voice recognition software.� Occasional wrong word or��sound alike� substitutions may have occurred due to the inherent limitations of voice recognition software.
Discharge Plan
Departure
Patient Disposition: Home (Routine Discharge)
Date of Disposition: 02/08/25
Time of Disposition: 15:29
Patient with high blood pressure during this ER visit?: No
Discharge Problem:
Near syncope, Accidental fall, Closed fracture of left inferior pubic ramus, Closed fracture of ischial tuberosity
Instructions: Pelvic fracture
Prescriptions:
No Action
furosemide 40 mg Tablet
40 mg PO DAILY Qty: 30 1RF
dofetilide 250 mcg Capsule
250 mcg PO Q12H Qty: 60 3RF
Eliquis 5 mg Tablet
5 mg PO BID Qty: 60 0RF
rosuvastatin 5 mg Tablet
5 mg PO QPM Qty: 30 0RF
ascorbic acid (vitamin C) [Vitamin C] 500 mg Tablet
500 mg PO DAILY
metoprolol succinate 50 mg tablet extended release 24 hr
50 mg PO DAILY Qty: 30 0RF
lisinopril 5 mg tablet
5 mg PO QPM
Referrals:
Silvano Quarles MD [Active, Orthopedics]
Napoleon North MD [Family Provider, Internal Medicine]
Interventions
Interventions:
*Risk Screen - Suicide Last Done: 02/08/25 10:40
*General Assessment Last Done: 02/08/25 11:18
*Neglect/Abuse Screening Last Done: 02/08/25 10:40
*ED- Fall Risk Assessment Last Done: 02/08/25 10:59
*ED COVID-19 Vaccine History Last Done: 02/08/25 11:18
*ED Influenza Vaccine History Last Done: 02/08/25 11:18
ED-Musculoskeletal Assessment Last Done: 02/08/25 11:18
ED- Neurological Assessment Last Done: 02/08/25 11:18
ED-Skin Assessment Last Done: 02/08/25 11:18
Discharge Date and Time
Print Language: NEPALESE
[2025-02-08 11:34] LABS: Hematocrit 41.9 % (39.0-52.0); Hemoglobin 14.6 g/dL (13.0-18.0); Mean Corp Hgb Conc. 34.8 g/dL (33.0-37.0); Mean Corpuscular Volume 101.5 fL (80.0-94.0); Nucleated Red Blood Cells % 0 % (-); Platelet Count 129 10^3/uL (130-400); Red Cell Dist. Width 14.8 % (11.5-14.5)
[2025-02-08 11:57] LABS: ALT (SGPT) 37 U/L (0-50); AST (SGOT) 46 U/L (17-59); Albumin 3.2 g/dl (3.5-5.0); Alkaline Phosphatase 85 U/L (38-126); Blood Urea Nitrogen 29 mg/dl (9-20); Calcium 8.9 mg/dl (8.4-10.2); Carbon Dioxide 18 mmol/L (22-30); Chloride 112 mmol/L (98-107); Glucose 95 mg/dl (70-99); Potassium 4.3 mmol/L (3.5-5.1); Sodium 134 mmol/L (135-145); Total Protein 6.1 g/dl (6.3-8.2); eGFR > 60.00
[2025-02-08 13:32] LABS: Urine Character Slightly Cloudy (Clear)
[2025-02-08 14:03] LABS: Urine Squamous Cell 0-2 /LPF (Few)
[2025-02-08 14:04] LABS: Urine Urothelial Cell 0-2 /LPF (FEW)
[2025-02-08 14:05] LABS: Urine Red Blood Cell 90-100 /HPF (0-2)
== END 2025-02-08 15:49 | disposition home or self-care (01) ==
LOC: EMR 10:30
PROVIDERS: Physician Assistant Medical; EMERGENCY PHYSICIAN Emergency Medicine; FAMILY PHYSICIAN Internal Medicine
DX: R55 Syncope and collapse (principal); S32.502A Unspecified fracture of left pubis, initial encounter for closed fracture; S32.602A Unspecified fracture of left ischium, initial encounter for closed fracture; I95.9 Hypotension, unspecified; D72.829 Elevated white blood cell count, unspecified; I48.91 Unspecified atrial fibrillation; I10 Essential (primary) hypertension; E78.00 Pure hypercholesterolemia, unspecified; Z79.02 Long term (current) use of antithrombotics/antiplatelets; Z79.01 Long term (current) use of anticoagulants; Z95.810 Presence of automatic (implantable) cardiac defibrillator; Z96.641 Presence of right artificial hip joint; W18.39XA Other fall on same level, initial encounter; Y93.01 Activity, walking, marching and hiking; Y92.002 Bathroom of unspecified non-institutional (private) residence as the place of occurrence of the external cause
CPT/HCPCS: 99284; 96360; 93288; 70450; 72192; 73502; 80053; 81003; 81015; 83605; 85025; 87040; 87086; 93005

== ENCOUNTER 2025-04-07 12:57 | Inpatient (IN) | payer MEDICARE, BC, SELFPAY ==
[2025-04-07 10:01] VITALS: BP 117/71
[2025-04-07 11:18] LABS: Hematocrit 41.6 % (39.0-52.0); Hemoglobin 13.9 g/dL (13.0-18.0); Mean Corp Hgb Conc. 33.4 g/dL (33.0-37.0); Mean Corpuscular Volume 106.7 fL (80.0-94.0); Nucleated Red Blood Cells % 0 % (-); Platelet Count 138 10^3/uL (130-400); Red Cell Dist. Width 15.3 % (11.5-14.5)
[2025-04-07 11:41] LABS: ALT (SGPT) 27 U/L (0-50); AST (SGOT) 32 U/L (17-59); Albumin 2.7 g/dl (3.5-5.0); Alkaline Phosphatase 81 U/L (38-126); Blood Urea Nitrogen 24 mg/dl (9-20); Calcium 8.4 mg/dl (8.4-10.2); Carbon Dioxide 26 mmol/L (22-30); Chloride 112 mmol/L (98-107); Glucose 113 mg/dl (70-99); Potassium 3.9 mmol/L (3.5-5.1); Sodium 137 mmol/L (135-145); Total Protein 5.6 g/dl (6.3-8.2); eGFR > 60.00
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
[2025-04-07 12:06] VITALS: BMI 24.5
[2025-04-07] MEDS: VANCOCIN 200 IV (12:24)
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
[2025-04-07 13:57] VITALS: BP 133/81; BMI 23.8
--- NOTE | 2025-04-07 14:05 | PHA.VAN.IN ---
Assessment
- Assessment
Renal Function: Appears similar to baseline
- Previous Dosing Experience
Previous Regimen: 1500mg q12h
Date of Regimen: 03/2021
Provided Trough of: 12
Patient's SCR is: Elevated compared to previous dosing experience (0.7 vs 0.5)
Patient's weight is: Similar to previous dosing experience (88.5 kg (then) vs 86.4 kg (now))
AUC Dosing Plan
- Dosing Variables
Dosing Weight (kg): 86.4
Dosing CrCl (ml/min): 100
Vd coefficient (L/kg): 0.7
- Empiric Dosing
Initial / Loading Dose: 1000mg
Maintenance Regimen: 1250mg q12h
Estimated AUC (mcg*h/mL): 504
Estimated Peak (mcg*h/mL): 31.8
Estimated Trough (mcg/ml): 12.7
Estimated Half Life (H): 7.9
- Monitoring
No levels ordered at this time: consider at steady state
Pharmacokinetics Vancomycin I
- -
Patient Age: 69
Patient Sex: Male
Vancomycin Day #: 1
Indication: Skin And Soft Tissue
Requesting Provider: Dr. Oates
Pertinent Antimicrobial Allergies:
amoxicillin=rash
Height / Weight:
Height 6 ft 3 in
Actual Weight 86.409 kg
IBW in k.5
- Vital Signs / Lab Results
Temp Pulse Resp BP Pulse Ox
97.9 F 71 18 133/81 99
04/07/25 13:57 04/07/25 13:57 04/07/25 13:57 04/07/25 13:57 04/07/25 13:57
Lab Results - Hematology
04/07/25
11:03
WBC 7.1
Lab Results - Chemistry
04/07/25
11:03
BUN 24 H
Creatinine 0.7
Albumin 2.7 L
04/07/25 04/07/25 04/07/25
11:03 12:15 16:15
Lactic Acid 1.9 Cancelled Cancelled
[2025-04-07 14:45] VITALS: BP 133/81
[2025-04-07 14:48] VITALS: BMI 23.8
--- NOTE | 2025-04-07 14:58 | PTCARENOTE ---
pt new admission from ED via stretcher. pt is AAO*3, Vss, room air. pt denies any pain. pt is oriented to the room. call hernandez within the reach.
[2025-04-07] MEDS: VANCOCIN 275 MG IV (17:00)
[2025-04-07 21:13] VITALS: BP 129/83
[2025-04-07] MEDS: TIKOSYN 250 MCG PO (21:17)
[2025-04-07] MEDS: ELIQUIS 5 MG PO (21:17)
[2025-04-07] MEDS: CRESTOR 5 MG PO (21:17)
[2025-04-07 23:26] VITALS: BP 116/76
[2025-04-08 03:21] VITALS: BP 120/70
[2025-04-08] MEDS: VANCOCIN 275 MG IV (05:29)
[2025-04-08 06:00] VITALS: BMI 23.8
[2025-04-08 07:00] VITALS: BP 121/80
[2025-04-08 07:17] LABS: Hematocrit 38.9 % (39.0-52.0); Hemoglobin 13.1 g/dL (13.0-18.0); Mean Corp Hgb Conc. 33.7 g/dL (33.0-37.0); Mean Corpuscular Volume 103.2 fL (80.0-94.0); Nucleated Red Blood Cells % 0 % (-); Platelet Count 138 10^3/uL (130-400); Red Cell Dist. Width 15.1 % (11.5-14.5)
[2025-04-08 07:43] LABS: ALT (SGPT) 26 U/L (0-50); AST (SGOT) 28 U/L (17-59); Albumin 2.5 g/dl (3.5-5.0); Alkaline Phosphatase 95 U/L (38-126); Blood Urea Nitrogen 20 mg/dl (9-20); Calcium 8.5 mg/dl (8.4-10.2); Carbon Dioxide 25 mmol/L (22-30); Chloride 113 mmol/L (98-107); Estimated Creatinine Clearance > 125 ml/min; Glucose 84 mg/dl (70-99); Potassium 3.9 mmol/L (3.5-5.1); Sodium 136 mmol/L (135-145); Total Protein 5.4 g/dl (6.3-8.2); eGFR > 60.00
--- NOTE | 2025-04-08 08:05 | PHA.VAN.FU ---
Vancomycin Assessment / Plan
- Assessment
Renal Function: Stable
WBC's are: WNL
In the past 24 hrs, patient has been: Afebrile
- Dosing Plan
Continue: 1250MG Q12H
- Monitoring Plan
Peak Level: 04/08 @2130
Trough Level: 04/09 @0530
- Follow Up
Pharmacy will continue to follow.
Vancomycin Follow UP
- -
Patient Age: 69
Patient Sex: Male
Vancomycin Day #: 2
Indication: Skin And Soft Tissue
Requesting Provider: Dr. Oates
Pertinent Antimicrobial Allergies:
amoxicillin=rash
Height / Weight:
Height 6 ft 3 in
Actual Weight 86.438 kg
IBW in k.5
- Vital Signs / Lab Results
Temp Pulse Resp BP Pulse Ox
98.4 F 71 18 120/70 95
04/08/25 03:21 04/08/25 03:21 04/08/25 03:21 04/08/25 03:21 04/08/25 03:21
Lab Results - Hematology
04/07/25 04/08/25
11:03 06:33
WBC 7.1 7.3
Lab Results - Chemistry
04/07/25 04/08/25
11:03 06:33
BUN 24 H 20
Creatinine 0.7 0.6 L
Estimated Creat Clear > 125
Albumin 2.7 L 2.5 L
04/07/25 04/07/25 04/07/25
11:03 12:15 16:15
Lactic Acid 1.9 Cancelled Cancelled
Microbiology Results
04/07/25 12:10 Gram Stain - Preliminary
Leg - Right
[2025-04-08] MEDS: ELIQUIS 5 MG PO ×2 (09:17→20:49)
[2025-04-08] MEDS: TOPROL XL 25 MG PO (09:17)
[2025-04-08] MEDS: COLACE 100 MG PO (09:17)
[2025-04-08] MEDS: LASIX 40 MG PO (09:18)
[2025-04-08] MEDS: TIKOSYN 250 MCG PO ×2 (09:18→20:51)
--- NOTE | 2025-04-08 09:24 | W.PN.HOSP.TC ---
Today's Communication/Plan
-
.
Assessment / Plan
Assessment / Plan
Physical Exam
General: Well Developed, Well Nourished and No Apparent Distress
HEENT: NormoCephalic, Moist mucous membranes and Atraumatic
Respiratory: Clear
Cardiac: S1/S2 and Regular Rhythm; No Murmur or Rub
GI: Soft, Non Tender, Non Distended and Normal Bowel Sounds; No Organomegaly
Rectal: Deferred by Provider
Musculoskeletal: No Clubbing, No Cyanosis and No Edema
Skin: No Rash
Neuro: Nonfocal/grossly intact
Psych: calm
# Infected wound of right lower extremity/right leg cellulitis after injury
Afiled OP oral antibiotic
Afebrile
No leukocytosis
No pain or tenderness on exam but distinct area of redness with swelling surrounding the wound
-Wound culture sent
-Blood cultures
- Vancomycin
- Wound care
- Appreciate ID help
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
Persistent atrial fibrillation
- Continue metoprolol
-Continue dofetilide
- Continue Eliquis
Chronic HFpEF
- Continue Lasix
Essential hypertension
- Continue lisinopril
Hyperlipidemia
- Continue statin
Full code
DVT prophylaxis�Eliquis
Regular diet
Total time spent to see the patient, examine the patient, review data and lab results, discuss treatment plan with patient, nursing staff around 55 minutes�
Anticipated Discharge: 24 - 48 hours
Subjective/Interval History
-
Date of Service: April 08, 2025
No chest pain
No fever or chills
No pain in the right leg
Objective Data
-
Labs:
Laboratory Results
04/08/25
06:33
WBC 7.3
Hgb 13.1
Hct 38.9 L
Plt Count 138
Sodium 136
Potassium 3.9
Chloride 113 H
Carbon Dioxide 25
BUN 20
Creatinine 0.6 L
Glucose 84
Calcium 8.5
Total Bilirubin 2.4 H
AST 28
ALT 26
Alkaline Phosphatase 95
Vital Signs:
Vital Signs
Temp Pulse Resp BP Pulse Ox
97.7 F 67 16 121/80 97
04/08/25 07:00 04/08/25 09:18 04/08/25 07:00 04/08/25 09:18 04/08/25 07:00
I&O
04/07/25 04/08/25 04/09/25
06:59 06:59 06:59
Intake Total 960 / 960
Output Total 550 / 550
Balance 410 / 410
[2025-04-08 11:25] VITALS: BP 130/69
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
[2025-04-08 15:50] VITALS: BP 115/68
[2025-04-08] MEDS: CRESTOR 5 MG PO (17:19)
[2025-04-08 19:27] VITALS: BP 125/74
[2025-04-08] MEDS: KEFLEX 500 MG PO (20:49)
[2025-04-08 23:22] VITALS: BP 106/67
[2025-04-09 03:21] VITALS: BP 119/70
[2025-04-09 06:00] VITALS: BMI 23.7
[2025-04-09 07:55] VITALS: BP 114/79
[2025-04-09 08:49] LABS: Hematocrit 42.3 % (39.0-52.0); Hemoglobin 14.6 g/dL (13.0-18.0); Mean Corp Hgb Conc. 34.5 g/dL (33.0-37.0); Mean Corpuscular Volume 103.9 fL (80.0-94.0); Platelet Count 145 10^3/uL (130-400); Red Cell Dist. Width 14.9 % (11.5-14.5)
[2025-04-09] MEDS: TIKOSYN 250 MCG PO (09:21)
[2025-04-09] MEDS: KEFLEX 500 MG PO (09:21)
[2025-04-09] MEDS: LASIX 40 MG PO (09:21)
[2025-04-09] MEDS: TOPROL XL 25 MG PO (09:22)
[2025-04-09] MEDS: ELIQUIS 5 MG PO (09:22)
[2025-04-09] MEDS: COLACE 100 MG PO (09:22)
[2025-04-09 09:24] LABS: Blood Urea Nitrogen 20 mg/dl (9-20); Calcium 8.3 mg/dl (8.4-10.2); Carbon Dioxide 25 mmol/L (22-30); Chloride 111 mmol/L (98-107); Estimated Creatinine Clearance 116 ml/min; Glucose 85 mg/dl (70-99); Potassium 3.8 mmol/L (3.5-5.1); Sodium 138 mmol/L (135-145); eGFR > 60.00
--- NOTE | 2025-04-09 09:40 | WOUNDNOTE ---
L 5TH TOE (MEDIAL)
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
--- NOTE | 2025-04-09 10:14 | W.DCSUMMARY ---
Discharge Summary
Discharge Data
Date of Admission: 04/07/25
Date of Discharge: 04/09/25
-
Pending Results: Yes
Additional Pending Results:
final bloos and wound cultures
Hospital Course
69yo M with PMHX of OM, Afib on eliquis, HTN, HLD came after worsening redness on R front paz after trauma when he hit his leg on byke training machine in rehab, scratching off appr 2-3 sq cm of skin. Started on KEflex at home and received 2 days
before coming back to [facility] with worsening redness. Redness actually seems to be from adhesive patch he used at home. Advied to use dry dressing with Yunier wrap at the top. Seen by ID and recommeded to cont Keflex. With posivie topical MRSA swab
-reasonable to add Doxy. Patient is not febrile, WBC wnl, dorsalis pedis pulse approprietly felt on RLE, patient not DM. Medcially stable to be d/c home with referral to wound care center.
I have spent at least 39min reviewing chart, test results, communication with consultants and providing direct patient care
Patient was managed for:
#RLE cellulitis 2/2 superfiscial wound
#HLD
#Essential HTN
#HLD
#Afib, paroxysmal
Discharge Plan
-
Patient Disposition: Home (Routine Discharge)
Discharge Diagnosis/Procedures: RLE cellulitis
Diet: Low Sodium
Activity: As tolerated
Driving Restrictions: As prior to admission
Activity Restrictions/Additional Instructions:
Wound Care Instructions
RLE wound-clean with saline, adaptic, ABD pad, secure with Yaron, change daily and as needed for drainage.
R knee high Yunier wrap as tolerated; rewrap daily and as needed for wound care.
L knee high compression sock; remove at bedtime. Reapply every morning.
Elevate heels off bed with pillow/s.
Follow up at wound care center call for an appointment.
Referrals:
Wound Care Center [Outside] - in two to three days
Napoleon North MD [Family Provider, Internal Medicine]
Additional Discharge Medication Instructions: take Keflex and Doxy for 5 more days- last day 04/14/25
Prescriptions:
New
doxycycline hyclate 100 mg Capsule
100 mg PO Q12 Qty: 10 0RF
Continued
furosemide 40 mg Tablet
40 mg PO DAILY Qty: 30 1RF
dofetilide 250 mcg Capsule
250 mcg PO Q12H Qty: 60 3RF
Eliquis 5 mg Tablet
5 mg PO BID Qty: 60 0RF
rosuvastatin 5 mg Tablet
5 mg PO QPM Qty: 30 0RF
ascorbic acid (vitamin C) [Vitamin C] 500 mg Tablet
500 mg PO DAILY
cephalexin 500 mg Capsule
500 mg PO BID
Rx Instructions:
for 7 day starting 04/04/25
docusate sodium [Colace] 100 mg Capsule
100 mg PO DAILY
metoprolol succinate [Toprol XL] 25 mg Tablet Extended Release 24 Hr
25 mg PO DAILY
cholecalciferol (vitamin D3) [Vitamin D3] 25 mcg (1,000 unit) Tablet
25 mcg PO DAILY
Discharge Orders:
Discharge Patient (As Directed); Ordered 04/09/25
Ordered By: Artur Mcfadden
Discharge Date and Time
Print Language: KAZAKH
--- NOTE | 2025-04-09 10:22 | WOUNDNOTE ---
[facility] RN note: Confirmed with Dr. Watson, patient can remove R knee high Yunier wrap at bedtime. Discharge instructions updated. t/c gun repair clerk Karen who stated she didn't print patient's discharge instructions yet. Patient was instructed can remove R
knee high Yunier at bedtime; reapply every morning.
[2025-04-09 11:04] LABS: Folate 8.5 ng/ml (2.76-20); Vitamin B12 814 pg/ml (239-931)
--- NOTE | 2025-04-09 11:21 | CM ---
Patient seen bedside.
Per patient plan d/c home today.
Patient denies home care needs.
Spouse will transport.
IMM completed.
Plan: home no needs.
[2025-04-09 11:25] VITALS: BP 115/78
[2025-04-09] MEDS: VIBRAMYCIN 100 MG PO (11:34)
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
== END 2025-04-09 13:46 | disposition home or self-care (01) | DRG 603 ==
LOC: 4 EAST ACU 12:57
PROVIDERS: Internal Medicine; ADMITTING PHYSICIAN Hospitalist; ATTENDING PHYSICIAN Internal Medicine; CONSULT PHYSICIAN Internal Medicine Infectious Disease; EMERGENCY PHYSICIAN Emergency Medicine; FAMILY PHYSICIAN Internal Medicine
DX: L03.115 Cellulitis of right lower limb (principal); I48.19 Other persistent atrial fibrillation; M86.9 Osteomyelitis, unspecified; I50.32 Chronic diastolic (congestive) heart failure; L25.9 Unspecified contact dermatitis, unspecified cause; I11.0 Hypertensive heart disease with heart failure; E78.00 Pure hypercholesterolemia, unspecified; Z79.01 Long term (current) use of anticoagulants; Z79.899 Other long term (current) drug therapy
CPT/HCPCS: 80048; 80053; 82607; 82746; 83605; 85025; 85027; 87040; 87070; 87147; 87186; 87205; 96365; 99284

== ENCOUNTER 2025-04-19 09:23 | Outpatient (REF) | payer MEDICARE, BC, SELFPAY | END 2025-04-19 23:59 | disposition home or self-care (01) | LOC: WOUND 09:23 | PROVIDERS: ATTENDING PHYSICIAN Registered Nurse; FAMILY PHYSICIAN Internal Medicine | DX: L97.211 Non-pressure chronic ulcer of right calf limited to breakdown of skin (principal); I87.2 Venous insufficiency (chronic) (peripheral); I48.0 Paroxysmal atrial fibrillation; Z79.01 Long term (current) use of anticoagulants | CPT/HCPCS: 99204 ==

== ENCOUNTER 2025-04-26 10:00 | Outpatient (REF) | payer MEDICARE, BC, SELFPAY | END 2025-04-26 23:59 | disposition home or self-care (01) | LOC: WOUND 10:00 | PROVIDERS: ATTENDING PHYSICIAN Registered Nurse; FAMILY PHYSICIAN Internal Medicine | DX: L97.211 Non-pressure chronic ulcer of right calf limited to breakdown of skin (principal); I87.2 Venous insufficiency (chronic) (peripheral); I48.0 Paroxysmal atrial fibrillation; Z79.01 Long term (current) use of anticoagulants | CPT/HCPCS: 97597 ==

== ENCOUNTER 2025-05-07 14:32 | Outpatient (REF) | payer MEDICARE, BC, SELFPAY | END 2025-05-07 23:59 | disposition home or self-care (01) | LOC: WOUND 14:32 | PROVIDERS: ATTENDING PHYSICIAN Registered Nurse; FAMILY PHYSICIAN Internal Medicine | DX: L97.211 Non-pressure chronic ulcer of right calf limited to breakdown of skin (principal); I87.2 Venous insufficiency (chronic) (peripheral); I48.0 Paroxysmal atrial fibrillation; Z79.01 Long term (current) use of anticoagulants | CPT/HCPCS: 99213 ==